=== PATIENT | male | born 1930 | race Caucasian/White ===

== ENCOUNTER 2016-10-22 14:00 | Inpatient (IN) | payer MEDICARE ==
[~2016-10-22] VITALS: Ht 175.3 cm; Wt 85.9 kg
[2016-10-22 14:00] VITALS: PULSE 74; RESP 18
[~2016-10-22 14:00] MED LIST: AMLO5TAB PO; DOXY-124 PO; FINA5TAB40 PO; TRIA1CAP35 PO
--- NOTE | 2016-10-22 14:00 | NUR ---
ADMISSION NOTE 86 YEAR OLD MALE WAS ADMITTED TO ROOM 189 TODAY AT 1400, DX WITH MAJOR NEUROCOGNITIVE DISORDER WITH BEHAVIORAL DISTURBANCES, PATIENT ARRIVED WALKING, FAMILY (SON, DAUGHTER IN LAW ) WERE PRESENT DURING ADMISSION. PATIENT CURRENTLY LIVES AT HOME ALONE, PAST AWAY 4 YEARS AGO, PATIENT IS ODALIS X 3, SPEECH IS CLEAR AND APPROPRIATE, PATIENT IS DRESSED APPROPRIATE FOR SEASON, HE WAS IN A HAPPY MOOD DURING ADMISSION, STATEMENT OF ADMISSION IS "I DON'T KNOW THEY SAID THEY WERE GOING TO CHECK MY BLOOD PRESSURE" PATIENT WAS COOPERATIVE WITH ASSESSMENT, HE HAS A LITTLE SCAB ON HIS RIGHT LE, HE ALSO HAS A SCAR ON HIS ABDOMEN RIGHT LOWER QUADRANT, PATIENT VALUABLES ARE ADDED TO HIS INVENTORY AND LOCK IN THE NURSES HOT BOX SPOTTER, PATIENT AND FAMILY WERE ORIENTED TO UNIT.
--- OUTSIDE RECORDS SUMMARY | 2016-10-22 15:19 | XMS REPORT | Referral Summary ---
Author Author [facility], Family Medicine Organization [facility] Address Unknown Phone Unavailable Care Team Providers Care District Operations Manager Name Role Phone Ibeth Velasco Primary Care Physician [phone] Encounter VC Date(s): 07/26/16 - 07/26/16 [facility] [address] [place] [address] Discharge Diagnosis: Driving safety issue Discharge Diagnosis: Cognitive Safety Issue Discharge Diagnosis: Poor Balance Discharge Diagnosis: Confusion Discharge Disposition: 01-Home or Self Care Attending Physician: Mejia Velasco MD Admitting Physician: Mejia Velasco MD Vital Signs Most recent to 1 oldest [Reference Range]: Peripheral Pulse 74 bpm Rate [60-100 bpm] (07/26/16 1:36 PM) Blood Pressure 188/90 mmHg [90-140/60-90 mmHg] *HI* (07/26/16 1:36 PM) Problem List Condition Effective Dates Status Health Status Informant Benign essential Active hypertension (disorder)(Confirmed ) Hernia, ventral Resolved incisional(Confirmed ) Hypertension(Confirm Resolved ed) Incisional hernia - 2012 Active ventral(Confirmed) Prostatic Resolved hypertrophy, benign(Confirmed) Prostatism(Confirmed Active ) Ruptured 1949 - 1949 Resolved liver(Confirmed) Allergies, Adverse Reactions, Alerts No Known Medication Allergies Medications amLODIPine 10 mg oral tablet See Instructions, TAKE ONE TABLET BY MOUTH DAILY, # 30 tabs, 5 Refill(s), eRx: [facility], TAKE ONE TABLET BY MOUTH DAILY Start Date: 11/25/15 Status: Ordered finasteride 5 mg oral tablet See Instructions, TAKE ONE TABLET BY MOUTH DAILY, # 90 tabs, 1 Refill(s), eRx: [facility], TAKE ONE TABLET BY MOUTH DAILY Start Date: 01/19/16 Status: Ordered Ocuvite 1 tabs, Oral, Daily, 0 Refill(s) Start Date: 11/21/15 Status: Ordered triamterene-hydrochlorothiazide 37.5 mg-25 mg oral capsule See Instructions, TAKE ONE CAPSULE BY MOUTH DAILY, # 30 caps, 5 Refill(s), eRx: [facility], TAKE ONE CAPSULE BY MOUTH DAILY Start Date: 11/25/15 Status: Ordered Results Hematology Most recent to 1 oldest [Reference Range]: WBC [4.8-10.8 7.6 10*3/uL 10*3/uL] (07/26/16 3:25 PM) RBC [4.60-6.20] 5.14 (07/26/16 3:25 PM) Hgb [14.0-18.0 15.1 gm/dL gm/dL] (07/26/16 3:25 PM) Hct [42.0-52.0 %] 48.3 % (07/26/16 3:25 PM) MCV [82.0-99.0 fL] 94.0 fL (07/26/16 3:25 PM) MCH [27.0-32.0 pg] 29.4 pg (07/26/16 3:25 PM) MCHC [32.0-36.0 31.3 gm/dL gm/dL] *LOW* (07/26/16 3:25 PM) RDW [11.5-14.5 %] 14.9 % *HI* (07/26/16 3:25 PM) Platelet [150-400 186 10*3/uL 10*3/uL] (07/26/16 3:25 PM) MPV [8.8-14.8 fL] 13.0 fL (07/26/16 3:25 PM) Immature 0.3 % Granulocytes (07/26/16 3:25 PM) [0.0-1.0 %] Neutrophils [51-75 67 % %] (07/26/16 3:25 PM) Lymphocytes [20-46 23 % %] (07/26/16 3:25 PM) Monocytes [4-11 %] 8 % (07/26/16 3:25 PM) Eosinophils [0-4 %] 1 % (07/26/16 3:25 PM) Basophils [0-2 %] 0 % (07/26/16 3:25 PM) Neutro Absolute 5.08 [1.90-7.00] (07/26/16 3:25 PM) Lymph Absolute 1.73 [0.80-3.30] (07/26/16 3:25 PM) Erath Absolute 0.63 [0.30-1.00] (07/26/16 3:25 PM) Eos Absolute 0.10 [0.00-0.50] (07/26/16 3:25 PM) Baso Absolute 0.03 [0.00-0.20] (07/26/16 3:25 PM) Sed Rate [0-15] 7 (07/26/16 3:25 PM) Chemistry Most recent to 1 oldest [Reference Range]: Sodium Lvl [135-144 143 mEq/L mEq/L] (07/26/16 3:25 PM) Potassium Lvl 4.3 mEq/L [3.5-5.2 mEq/L] (07/26/16 3:25 PM) Chloride [99-111 108 mEq/L mEq/L] (07/26/16 3:25 PM) CO2 [23-31 mEq/L] 23 mEq/L (07/26/16 3:25 PM) AGAP [3-20] 12 (07/26/16 3:25 PM) BUN [8-26 mg/dL] 27 mg/dL *HI* (07/26/16 3:25 PM) Glucose Lvl [70-99 113 mg/dL mg/dL] *HI* (07/26/16 3:25 PM) Creatinine Lvl 1.37 mg/dL [0.72-1.25 mg/dL] *HI* (07/26/16 3:25 PM) eGFR [>60 mL/min] 50 mL/min 1 *ABN* (07/26/16 3:25 PM) Calcium Lvl 9.9 mg/dL [8.9-10.5 mg/dL] (07/26/16 3:25 PM) Albumin Lvl [3.4-4.8 3.9 gm/dL gm/dL] (07/26/16 3:25 PM) Total Protein 7.0 gm/dL [6.0-7.6 gm/dL] (07/26/16 3:25 PM) Globulin [1.8-4.0 3.1 gm/dL gm/dL] (07/26/16 3:25 PM) ALT [0-55 U/L] 10 U/L (07/26/16 3:25 PM) AST [5-34 U/L] 15 U/L (07/26/16 3:25 PM) Alk Phos [40-150 69 U/L U/L] (07/26/16 3:25 PM) Bili Total [0.2-1.2 0.6 mg/dL mg/dL] (07/26/16 3:25 PM) TSH with Reflex Free 1.62 T4 [0.35-4.94] (07/26/16 3:25 PM) 1Result Comment: Multiply eGFR results by 1.21 for race. Urinalysis Most recent to 1 oldest [Reference Range]: UA Color DkYellow (07/26/16 3:39 PM) UA Appear Turbid *ABN* (07/26/16 3:39 PM) UA pH [5.0-8.0] 5.5 (07/26/16 3:39 PM) UA Leuk Est Negative [Negative] (07/26/16 3:39 PM) UA Nitrite Negative [Negative] (07/26/16 3:39 PM) UA Protein Pos 2+ [Negative] *ABN* (07/26/16 3:39 PM) UA Glucose Negative [Negative] (07/26/16 3:39 PM) UA Ketones Negative [Negative] (07/26/16 3:39 PM) UA Urobilinogen 1.0 mg/dL [<1.0 mg/dL] (07/26/16 3:39 PM) UA Bili [Negative] Negative (07/26/16 3:39 PM) UA Blood [Negative] Negative (07/26/16 3:39 PM) UA Spec Grav 1.028 [1.003-1.030] (07/26/16 3:39 PM) Type Clean Catch (07/26/16 3:39 PM) UA WBC [0-4] 0-2 (07/26/16 3:39 PM) UA RBC [0-4] 0-4 (07/26/16 3:39 PM) Epithelial Cells 0-2 (07/26/16 3:39 PM) UA Hyal Cast [0-3] 1-3 (07/26/16 3:39 PM) Immunizations Given and Recorded Vaccine Date Status Refusal Reason tetanus/diphth/pertuss (Tdap) adult/adol 07/23/14 Given pneumococcal 13-valent conjugate vaccine 04/11/15 Given pneumococcal 23-polyvalent vaccine 07/10/10 Recorded tetanus-diphth toxoids (Td) adult/adol 06/27/04 Recorded Procedures Procedure Date Related Diagnosis Body Site Hernia repair, laparoscopic with mesh 07/27/12 S/P tonsillectomy 2011 Cataract extraction, bilateral TURP - Transurethral resection of prostate1 1Dr. Cho Social History Social History Type Response Smoking Status Never smoker Assessment and Plan Extracted from: Title: Acute OV Author: Mejia Velasco MD Date: 07/26/16 Impression and Plan Diagnosis Cognitive Safety Issue ([id number] Z65.9, Discharge, Medical). Confusion ([id number] R41.0, Discharge, Medical). Driving safety issue ([id number] Z91.89, Discharge, Medical). Poor Balance ([id number]-RK R26.89, Discharge, Medical). Orders Orders (Selected) Outpatient Orders Future (On Hold) CBC w/ Differential: CMP: Sedimentation Rate: TSH with Reflex Free T4: Urinalysis with Culture if Indicated: .
--- OUTSIDE RECORDS SUMMARY | 2016-10-22 15:19 | XMS REPORT | Referral Summary ---
Author Author [facility], Family Medicine Organization [facility] Address Unknown Phone Unavailable Care Team Providers Care Health Nurse Name Role Phone Ibeth Velasco Primary Care Physician [phone] Encounter VC Date(s): 04/11/15 - 04/11/15 [facility] [address] [place] [address] Discharge Diagnosis: Prostatism Discharge Diagnosis: Benign essential hypertension Discharge Disposition: 01-Home or Self Care Attending Physician: Mejia Velasco MD Admitting Physician: Mejia Velasco MD Vital Signs Most recent to 1 oldest [Reference Range]: Temperature Tympanic 36.2 degC [36.6-38.1 degC] *LOW* (04/11/15 8:44 AM) Peripheral Pulse 74 bpm Rate [60-100 bpm] (04/11/15 8:44 AM) Blood Pressure 150/85 mmHg [90-140/60-90 mmHg] *HI* (04/11/15 8:44 AM) Problem List Condition Effective Dates Status Health Status Informant Benign essential Active hypertension (disorder)(Confirmed ) Hernia, ventral Resolved incisional(Confirmed ) Hypertension(Confirm Resolved ed) Incisional hernia - 2012 Active ventral(Confirmed) Prostatic Resolved hypertrophy, benign(Confirmed) Prostatism(Confirmed Active ) Ruptured 1949 - 1949 Resolved liver(Confirmed) Allergies, Adverse Reactions, Alerts No Known Medication Allergies Medications amLODIPine 10 mg oral tablet 10 mg 1 tabs, Oral, Daily, # 30 tabs, 2 Refill(s), Pharmacy: [facility], 1 tabs Oral Daily Start Date: 04/11/15 Status: Ordered ocular lubricant Eye-Both, 0 Refill(s) Start Date: 07/23/14 Status: Ordered Proscar 5 mg oral tablet See Instructions, TAKE ONE TABLET BY MOUTH DAILY, # 90 tabs, eRx: [facility], TAKE ONE TABLET BY MOUTH DAILY Start Date: 01/16/15 Status: Ordered triamterene-hydrochlorothiazide 37.5 mg-25 mg oral capsule 1 caps, Oral, Daily, PLEASE CALL TO MAKE APPT FOR MEDICATION CHECK WITH DR VELASCO, # 30 caps, 1 Refill(s), Pharmacy: [facility] Start Date: 03/04/15 Status: Ordered Results Chemistry Most recent to 1 oldest [Reference Range]: Sodium Lvl [135-144 139 mEq/L mEq/L] (04/11/15 9:30 AM) Potassium Lvl 4.3 mEq/L [3.5-5.2 mEq/L] (04/11/15 9:30 AM) Chloride [99-111 101 mEq/L mEq/L] (04/11/15 9:30 AM) CO2 [23-31 mEq/L] 29 mEq/L (04/11/15 9:30 AM) AGAP [3-20] 9 (04/11/15 9:30 AM) BUN [8-26 mg/dL] 22 mg/dL (04/11/15 9:30 AM) Glucose Lvl [70-99 133 mg/dL mg/dL] *HI* (04/11/15 9:30 AM) Creatinine Lvl 1.47 mg/dL [0.72-1.25 mg/dL] *HI* (04/11/15 9:30 AM) eGFR [>60 mL/min] 46 mL/min 1 *ABN* (04/11/15 9:30 AM) Calcium Lvl 10.8 mg/dL [8.9-10.5 mg/dL] *HI* (04/11/15 9:30 AM) 1Result Comment: Multiply eGFR results by 1.21 for race. Immunizations Vaccine Date Refusal Reason tetanus/diphth/pertuss (Tdap) adult/adol 07/23/14 pneumococcal 13-valent conjugate vaccine 04/11/15 pneumococcal 23-polyvalent vaccine 07/10/10 tetanus-diphth toxoids (Td) adult/adol 06/27/04 Procedures Procedure Date Related Diagnosis Body Site Hernia repair, laparoscopic with mesh 07/27/12 S/P tonsillectomy 2012 Cataract extraction, bilateral TURP - Transurethral resection of prostate1 1Dr. Cho Social History Social History Type Response Smoking Status Never smoker Assessment and Plan Extracted from: Title: Office Visit Note Author: Mejia Velasco MD Date: 04/11/15 Assessment/Plan Benign essential hypertension Ordered: Basic Metabolic Panel Prostatism Orders: amLODIPine, 10 mg 1 tabs, Oral, Daily, # 30 tabs, 2 Refill(s), Pharmacy: [facility], 1 tabs Oral Daily Blood pressure seems to be just a bit above goal. Will increase amlodipine to 10 mg daily. Monitor blood pressures with goal less than 140/90. Follow-up with me in one month. Check BMP , we will update Prevnar vaccine.
--- OUTSIDE RECORDS SUMMARY | 2016-10-22 15:19 | XMS REPORT | Referral Summary ---
Author Author [facility], Family Medicine Organization [facility] Address Unknown Phone Unavailable Care Team Providers Care Professional System Administrator Name Role Phone Ibeth Velasco Primary Care Physician [phone] Encounter VC Date(s): 11/21/15 - 11/21/15 [facility] [address] [place] [address] Discharge Diagnosis: Ganglion cyst Discharge Diagnosis: Ganglion cyst Discharge Disposition: 01-Home or Self Care Attending Physician: Mejia Velasco MD Admitting Physician: Mejia Velasco MD Vital Signs Most recent to 1 oldest [Reference Range]: Temperature Tympanic 36.8 degC [36.6-38.1 degC] (11/21/15 1:58 PM) Peripheral Pulse 75 bpm Rate [60-100 bpm] (11/21/15 1:58 PM) Blood Pressure 124/84 mmHg [90-140/60-90 mmHg] (11/21/15 1:58 PM) SpO2 94 % (11/21/15 1:58 PM) Problem List Condition Effective Dates Status [...] TABLET BY MOUTH DAILY, # 30 tabs, 1 Refill(s), eRx: [facility], TAKE ONE TABLET BY MOUTH DAILY Start Date: 08/22/15 Status: Ordered ocular lubricant Eye-Both, 0 Refill(s) Start Date: 07/23/14 Status: Ordered Ocuvite 1 tabs, Oral, Daily, 0 Refill(s) Start Date: 11/21/15 Status: Ordered Proscar 5 mg oral tablet See Instructions, TAKE ONE TABLET BY MOUTH DAILY, # 90 tabs, 1 Refill(s), eRx: [facility], TAKE ONE TABLET BY MOUTH DAILY Start Date: 04/15/15 Status: Ordered triamterene-hydrochlorothiazide 37.5 mg-25 mg oral capsule See Instructions, TAKE ONE CAPSULE BY MOUTH DAILY, # 30 caps, 1 Refill(s), eRx: [facility], TAKE ONE CAPSULE BY MOUTH DAILY Start Date: 08/22/15 Status: Ordered Results No data available for this section Immunizations Vaccine Date Refusal Reason tetanus/diphth/pertuss (Tdap) [...] Acute OV Author: Mejia Velasco MD Date: 11/21/15 Impression and Plan Diagnosis Ganglion cyst ([id number] M67.40, Discharge, Medical). Plan: Discussed etiology and pathology of a Ganglion cyst. Continue to monitor. If symptoms worsen, will follow up for referral to hand surgeon..
--- OUTSIDE RECORDS SUMMARY | 2016-10-22 15:19 | XMS REPORT | Referral Summary ---
Author Author [facility] Organization [facility] Address Unknown Phone Unavailable Care Team Providers Care Operating Room Nurse Name Role Phone Ibeth Velasco Primary Care Physician [phone] Encounter VC Date(s): 12/10/14 - 12/10/14 [facility] [address] [place] [address]- Discharge Disposition: 01-Home or Self Care Attending Physician: Mejia Velasco MD Admitting Physician: Mejia Velasco MD Vital Signs No data available for this section Problem List Condition Effective Dates Status Health [...] CAPSULE BY MOUTH DAILY, # 30 caps, eRx: [facility], TAKE ONE CAPSULE BY MOUTH DAILY Start Date: 05/30/15 Status: Ordered Results No data available for [...] Smoking Status Never smoker Assessment and Plan No data available for this section
--- OUTSIDE RECORDS SUMMARY | 2016-10-22 15:19 | XMS REPORT | Referral Summary ---
Author Author [facility], Family Medicine Organization [facility] Address Unknown Phone Unavailable Care Team Providers Care Assistant Professor Of Mathematics Name Role Phone Ibeth Velasco Primary Care Physician [phone] Encounter VC Date(s): 01/20/15 - 01/20/15 [facility], [address] [place] [address] Discharge Diagnosis: Complex laceration of right eyebrow Discharge Disposition: 01-Home or Self Care Attending Physician: William Corral DO Admitting Physician: William Corral DO Referring Physician: Mejia Velasco MD Vital Signs Most recent to 1 oldest [Reference Range]: Temperature Tympanic 37 degC [36.6-38.1 degC] (01/20/15 4:04 PM) Peripheral Pulse 60 bpm Rate [60-100 bpm] (01/20/15 4:04 PM) Blood Pressure 122/74 mmHg [90-140/60-90 mmHg] (01/20/15 4:04 PM) Problem List Condition Effective Dates Status [...] # 30 tabs, 2 Refill(s), Pharmacy: [facility], 1 tabs Oral Daily Start Date: 04/11/15 [...] ONE CAPSULE BY MOUTH DAILY Start Date: 07/14/15 Status: Ordered Results No data available for this section Immunizations Vaccine Date Refusal Reason tetanus/diphth/pertuss (Tdap) adult/adol 07/23/14 pneumococcal 13-valent conjugate vaccine 04/11/15 pneumococcal 23-polyvalent vaccine 07/10/10 tetanus-diphth toxoids (Td) adult/adol 06/27/04 Procedures Procedure Date Related Diagnosis Body Site Repair, complex, forehead, cheeks, chin, 01/20/15 mouth, neck, axillae, genitalia, hands and/or feet; 1.1 cm to 2.5 cm.. Hernia repair, laparoscopic with mesh 07/27/12 S/P tonsillectomy 2011 Cataract extraction, bilateral TURP - Transurethral resection of prostate1 1Dr. Cho Social History Social History Type Response Smoking Status Never smoker Assessment and Plan Extracted from: Title: Office Visit Note Author: William Corral DO Date: 01/20/15 Assessment/Plan Complex laceration of right eyebrow Given the extent and depth of the laceration repair was recommended to which the patient agreed. With the patient laid in the supine position the area was cleansed with saline. Using one percent lidocaine with epinephrine, a total of 3 mL was infiltrated along the margins of the laceration. Once local anesthesia was achieved, the wound was explored and no foreign bodies appreciated. The wound was rinsed with a total of 40 mL of normal saline using a 10 mL syringe and 18- gauge needle. Using 4-0 Vicryl the deep margins of the laceration were approximated with 4 interrupted sutures. The superficial margins were approximated using 5-0 Prolene with a running suture. The wound was cleansed and wound care instructions provided. Follow-up in one week for suture removal. Ordered: Office Visit Level 3 Est 65830 repair complex f/c/c/m/n/ax/g/h/f 1.1 cm-2.5 cm [id number]
--- OUTSIDE RECORDS SUMMARY | 2016-10-22 15:19 | XMS REPORT | Referral Summary ---
Author Author [facility], Family [facility] Organization [facility] Address Unknown Phone Unavailable Care Team Providers Care Nuclear Radiation Engineer Name Role Phone Ibeth Velasco Primary Care Physician [phone] Encounter VC Date(s): 08/06/15 - 08/06/15 [facility] [address] [place] [address] Discharge Diagnosis: Benign essential hypertension Discharge Disposition: 01-Home or Self Care Attending Physician: William Corral DO Admitting Physician: William Corral DO Referring Physician: Mejia Velasco MD Vital Signs Most recent to 1 oldest [Reference Range]: Peripheral Pulse 72 bpm Rate [60-100 bpm] (08/06/15 10:22 AM) Blood Pressure 142/80 mmHg [90-140/60-90 mmHg] *HI* (08/06/15 10:22 AM) SpO2 97 % (08/06/15 10:22 AM) Problem List Condition Effective Dates Status [...] smoker Assessment and Plan Extracted from: Title: HTN Author: William Corral DO Date: 08/06/15 Assessment/Plan Benign essential hypertension, Essential (primary) hypertension 1. His blood pressure is well controlled today. 2. Continue with current regimen. 3. Recommended low-salt diet. 4. Avoid NSAIDs. 5. Primary care provider for management. Ordered: Office Visit Level 3 Est [id number]
--- OUTSIDE RECORDS SUMMARY | 2016-10-22 15:19 | XMS REPORT | Referral Summary ---
Author Organization Unknown Address Unknown Phone Unavailable Care Team Providers Care Plant Attendant Name Role Phone Ibeth Velasco Primary Care Physician [phone] Encounter VC FREDDY [id number] Date(s): 07/23/14 - 07/23/14 [facility], Matthew, Family [address] [place] [address] Discharge Diagnosis: Puncture wound Discharge Diagnosis: Elevated BP Discharge Diagnosis: Need for diphtheria, tetanus, acellular pertussis, haemophilus influenzae, and hepatitis B virus vaccine Discharge Diagnosis: Need for tetanus booster Discharge Disposition: Home or Self Care Attending Physician: Mejia Velasco MD Admitting Physician: Mejia Velasco MD Vital Signs Most recent to 1 oldest [Reference Range]: Temperature Tympanic 35.8 degC [36.6-38.1 degC] *LOW* (07/23/14 8:39 AM) Peripheral Pulse 80 bpm Rate [60-100 bpm] (07/23/14 8:39 AM) Blood Pressure 155/84 mmHg [90-140/60-90 mmHg] *HI* (07/23/14 8:39 AM) Problem List Condition Effective Dates Status Health Status Informant Benign essential Active hypertension (disorder)(Confirmed ) Hernia, ventral Resolved incisional(Confirmed ) Hypertension(Confirm Resolved ed) Incisional hernia - 2012 Active ventral(Confirmed) Prostatic Resolved hypertrophy, benign(Confirmed) Prostatism(Confirmed Active ) Ruptured 1949 - 1949 Resolved liver(Confirmed) Allergies, Adverse Reactions, Alerts No Known Medication Allergies Medications amLODIPine 5 mg oral tablet tabs, Oral, Daily, 0 Refill(s) Start Date: 07/23/14 Status: Ordered finasteride 5 mg oral tablet See Instructions, TAKE ONE TABLET BY MOUTH DAILY, # 90 tabs, 2 Refill(s), eRx: [facility], TAKE ONE TABLET BY MOUTH DAILY Special Instructions: TAKE ONE TABLET BY MOUTH DAILY Start Date: 02/07/14 Status: Ordered ocular lubricant Eye-Both, 0 Refill(s) Start Date: 07/23/14 Status: Ordered triamterene-hydrochlorothiazide 37.5 mg-25 mg oral capsule See Instructions, TAKE ONE CAPSULE BY MOUTH DAILY, # 30 caps, 5 Refill(s), eRx: [facility], TAKE ONE CAPSULE BY MOUTH DAILY Special Instructions: TAKE ONE CAPSULE BY MOUTH DAILY Start Date: 06/25/14 Status: Ordered Results No data available for this section Immunizations Vaccine Date Refusal Reason tetanus/diphth/pertuss (Tdap) adult/adol 07/23/14 pneumococcal 23-polyvalent vaccine 07/10/10 tetanus-diphth toxoids (Td) adult/adol 06/27/04 Procedures Procedure Date Related Diagnosis Body Site Hernia repair, laparoscopic with mesh 07/27/12 S/P tonsillectomy 2011 Cataract extraction, bilateral TURP - Transurethral resection of prostate1 1Dr. Cho Social History Social History Type Response Smoking Status Never smoker Assessment and Plan Extracted from: Title: Office Visit Note-cats Author: Mejia Velasco MD Date: 07/23/14 scratch injury Assessment/Plan Elevated BP Monitor blood pressures. Follow-up when necessary. Need for tetanus booster Update Tdap today. Puncture wound No significant problem at this point. Follow-up if worsening symptoms/signs of infection.
--- OUTSIDE RECORDS SUMMARY | 2016-10-22 15:19 | XMS REPORT | Continuity of Care Document ---
Author Author [facility] Organization [facility] Address Unknown Phone Unavailable Allergies Active Description Code Type Severity Reaction Onset Reported/Identified Relationship to Patient Clinical Status Yes No Known Medication Allergies NKMA N/A N/A 06/07/2014 Medications Problems Procedures Results Test Result Range CBC With Platelet and Differential - 07/26/16 15:25 Absolute Basophils 0.03 10*3/uL 0.00- 0.20 Absolute Eosinophils 0.10 10*3/uL 0.00- 0.50 Absolute Lymphocytes 1.73 10*3/uL 0.80- 3.30 Absolute Monocytes 0.63 10*3/uL 0.30- 1.00 Absolute Neutrophils 5.08 10*3/uL 1.90- 7.00 Basophils 0 % 0-2 Eosinophils 1 % 0-4 HCT 48.3 % 42.0-52.0 HGB 15.1 g/dL 14.0-18.0 Immature Granulocytes 0.3 % 0.0-1.0 Lymphocytes 23 % 20-46 MCH 29.4 pg 27.0-32.0 MCHC 31.3 g/dL 32.0-36.0 MCV 94.0 fL 82.0-99.0 Monocytes 8 % 4-11 MPV 13.0 fL 8.8-14.8 Neutrophils 67 % 51-75 Platelet Count 186 K/uL 150-400 RBC 5.14 10*6/uL 4.60-6.20 RDW 14.9 % 11.5-14.5 WBC 7.6 K/uL 4.8-10.8 TSH with Reflex Free T4 - 07/26/16 15:25 TSH with Reflex Free T4 1.62 uIU/mL 0.35- 4.94 Comprehensive Metabolic Panel (CMP) - 07/26/16 15:25 Albumin 3.9 g/dL 3.4-4.8 Alkaline Phosphatase 69 U/L 40-150 ALT (SGPT) 10 U/L 0-55 AST (SGOT) 15 U/L 5-34 Bilirubin Total 0.6 mg/dL 0.2-1.2 BUN 27 mg/dL 8-26 CO2 23 mEq/L 23-31 Creatinine 1.37 mg/dL 0.72-1.25 Globulin 3.1 g/dL 1.8-4.0 Glucose 113 mg/dL 70-99 Protein 7.0 g/dL 6.0-7.6 eGFR - 07/26/16 15:25 eGFR 50 mL/min >60 Sedimentation Rate - 07/26/16 15:25 Sedimentation Rate 7 mm/h 0-15 Urinalysis with reflex microscopic - 07/26/16 15:39 Appearance Turbid NA Blood Negative NA Negative Color DkYellow NA Glucose, Urine Negative Negative Ketones Negative Negative Leukocyte Esterase Negative NA Negative Nitrites Negative NA Negative pH 5.5 NA 5.0-8.0 Protein Pos 2+ Negative Specific [place] 1.028 NA 1.003-1.030 UA Collection type Clean Catch NA Urobilinogen 1.0 mg/dL <1.0 Urine Microscopic - 07/26/16 15:39 Epithelial Cells 0 /HPF Hyaline Casts 1 /LPF 0-3 RBC, Urine 0 /HPF 0-4 WBC, Urine 0 /HPF 0-4 Encounters ACCT No. Visit Date/Time Discharge Status Pt. Type Provider Facility Loc./Unit Complaint [id number] 07/26/2016 13:14:00 2016 23:59:00 DIS Outpatient Mejia Velasco V [facility] MOVING TO [facility] ORDERS [id number] 11/21/2015 13:34:00 2015 23:59:00 DIS Outpatient Mejia Velasco V [facility] lump on right wrist [id number] 08/06/2015 10:17:00 2015 23:59:00 DIS Outpatient William Corral [facility] [place] ELEVATED BP [id number] 04/11/2015 08:34:00 2014 23:59:00 DIS Outpatient Mejia Velasco V [facility] [place] recheck [id number] 01/29/2015 09:28:00 2014 23:59:00 DIS Outpatient Mejia Velasco V [facility] SUTURE REMOVAL [id number] 01/20/2015 15:56:00 2014 23:59:00 DIS Outpatient William Corral [facility] FELL AT HOME HIT HEAD RT SIDE OF MORMON [id number] 07/23/2014 08:31:00 2014 23:59:00 DIS Outpatient Mejia Velasco V [facility] CATCH SCRATCH FROM A COUPLE DAYS AGO [id number] 06/07/2014 10:07:00 2013 23:59:00 DIS Outpatient William Corral [facility] NOSE BLEEDS/WAS SEEN BY EMS TODAY [id number] 12/10/2014 12:06:00 Document Registration
--- OUTSIDE RECORDS SUMMARY | 2016-10-22 15:20 | XMS REPORT | Referral Summary ---
Author Author [facility] Organization [facility] Address Unknown Phone Unavailable Care Team Providers Care Thread Milling Machine Set Up Operator Name Role Phone Ibeth Velasco Primary Care Physician [phone] Encounter VC Date(s): 01/29/15 - 01/29/15 [facility] [address] [place] [id number] Discharge Diagnosis: Encounter for removal of sutures Discharge Disposition: 01-Home or Self Care Attending Physician: Mejia Velasco MD Admitting Physician: Mejia Velasco MD Vital Signs Most recent to 1 oldest [Reference Range]: Temperature Tympanic 36 degC [36.6-38.1 degC] *LOW* (01/29/15 9:30 AM) Peripheral Pulse 72 bpm Rate [60-100 bpm] (01/29/15 9:30 AM) Blood Pressure 138/89 mmHg [90-140/60-90 mmHg] (01/29/15 9:30 AM) Problem List Condition Effective Dates Status [...] DAILY, # 90 tabs, 1 Refill(s), eRx: [facility], TAKE ONE TABLET BY MOUTH DAILY [...] Visit Note Author: Mejia Velasco MD Date: 01/29/15 Assessment/Plan Encounter for removal of sutures Follow-up when necessary.
--- OUTSIDE RECORDS SUMMARY | 2016-10-22 15:20 | XMS REPORT | Referral Summary ---
Author Author [facility] Organization [facility] Address Unknown Phone Unavailable Care Team Providers Care Merchant Tailor Name Role Phone Ibeth Velasco Primary Care Physician [phone] Encounter VC Date(s): 04/11/15 - 04/11/15 [facility] [address] [place] [address] Discharge Diagnosis: Prostatism Discharge Diagnosis: Benign essential [...] DAILY Start Date: 08/22/15 Status: Ordered Results Chemistry Most recent to [...] Daily, # 30 tabs, 2 Refill(s), Pharmacy: [facility], 1 tabs Oral Daily Blood pressure seems to be just a bit above goal. Will increase amlodipine to 10 mg daily. Monitor blood pressures with goal less than 140/90. Follow-up with me in one month. Check BMP , we will update Prevnar vaccine.
[2016-10-22 15:23] VITALS: BP 146/93; PULSE 74; RESP 18; TEMP 97.4; O2SAT 93
[2016-10-22] MEDS ORDERED: VIT1CAPS21 PO (15:37)
[2016-10-22] MEDS ORDERED: HALOPERIDOL 5 MG/ML INJECTION IM PRN (16:00)
[2016-10-22] MEDS ORDERED: LORAZEPAM 2 MG/ML INJECTION IM PRN (16:00)
[2016-10-22] MEDS ORDERED: HALOPERIDOL 0.5 MG TABLET PO PRN (16:00)
[2016-10-22] MEDS ORDERED: PRN ORDERS MC (16:00)
[2016-10-22] MEDS ORDERED: LORAZEPAM 0.5 MG TABLET PO PRN (16:00)
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
[2016-10-22 17:07] VITALS: BP 173/99; PULSE 80; RESP 18; TEMP 98.2; O2SAT 95
[2016-10-22 17:16] LABS: BASOPHILS % (AUTO) 0.1 % (0-2); EOSINOPHILS # (AUTO) 0.1 T/MM3 (0-0.5); EOSINOPHILS % (AUTO) 0.6 % (0-4); HCT - HEMATOCRIT 49.7 % (41-53); HGB - HEMOGLOBIN 16.2 GM/DL (13.5-17.5); IMMATURE GRANULOCYTE # (AUTO) 0.02 T/MM3 (0.00-0.03); IMMATURE GRANULOCYTE % (AUTO) 0.2 % (0.0-0.5); LYMPHOCYTES # (AUTO) 1.9 T/MM3 (1-4.8); LYMPHOCYTES % (AUTO) 19.5 % (23-45); MEAN CORPUSCULAR HGB 30.1 UUG (26-34); MEAN CORPUSCULAR HGB CONC(MCHC 32.6 GM/DL (31-37); MEAN CORPUSCULAR VOLUME 92.4 UM3 (80-100); MEAN PLATELET VOLUME 12.5 UM3 (9.4-12.4); MONOCYTES # (AUTO) 0.5 T/MM3 (0-0.8); MONOCYTES % (AUTO) 4.9 % (0-9.0); NEUTROPHILS #(AUTO)-ABSOLUTE 7.1 T/MM3 (1.8-7.7); NEUTROPHILS % (AUTO) 74.7 % (33-66); RED BLOOD COUNT 5.38 M/MM3 (4.50-5.90); WBC - WHITE BLOOD COUNT 9.6 T/MM3 (4.5-11.0)
[2016-10-22 17:23] LABS: HEMOGLOBIN A1C 5.8 % (6.1-7.9)
[2016-10-22 17:24] LABS: ALBUMIN 4.2 G/DL (3.5-5.0); ALBUMIN/GLOBULIN RATIO 1.2 RATIO (1.1-2.2); ALKALINE PHOSPHATASE 76 U/L (38-126); ALT (SGPT) 39 U/L (21-72); ANION GAP 16 MEQ/L (5-15); AST (SGOT) 25 U/L (17-59); BUN/CREATININE RATIO 23 RATIO (6-26); CALCIUM 10.4 MG/DL (8.4-10.2); CHLORIDE 103 MEQ/L (98-107); CO2 - CARBON DIOXIDE 26 MEQ/L (22-30); CREATININE 1.2 MG/DL (0.8-1.5); GLOMERULAR FILTRATION RATE 58; GLUCOSE 113 MG/DL (75-110); POTASSIUM 3.9 MEQ/L (3.6-5); SODIUM 145 MEQ/L (134-144); TOTAL PROTEIN 7.8 G/DL (6.3-8.2)
[2016-10-22 17:54] LABS: THYROID STIM HORMONE-TSH 1.37 MIU/L (0.47-4.68)
[2016-10-22 18:27] VITALS: Ht 175.3 cm; Wt 85.9 kg
--- NOTE | 2016-10-22 19:13 | NUR ---
SHIFT SUMMARY Patient is AO x 3. speech is clear and appropriate, patient did not had any medications since admission, patient has a steady gait, ambulates independently, is able to feed self. Patient was upset around 2 hours after admission, he was med and felt like people lied to him because he was not told he was going to stay here for a couple of days, patient was raising his voice and saying " I want to go home, I'm not staying here 2 days, I don't agree with your philosophy, I'm going home, they told me they were just going to check my blood pressure. " Patient was explained our process and he said he does not agree and is not going to stay. Patient was able to redirect. Patient was more calm and relax after dinner, he is able to make needs known. Patient denies needs or concerns at the moment.
[2016-10-22 19:34] VITALS: PULSE 80; RESP 18; O2SAT 95
--- NOTE | 2016-10-22 19:53 | NUR ---
smoking status patient is a non smoker.
--- NOTE | 2016-10-22 19:53 | NUR ---
alcohol audit patient score 0 on alcohol audit
[2016-10-22 20:37] VITALS: BP 170/98; PULSE 77; RESP 20; TEMP 98.3
--- NOTE | 2016-10-22 23:07 | NUR ---
UPREGULATING PT HAD CLARIFIER OPERATOR HELPER LIGHT, I WENT INTO SEE WHAT PT WANTED. SOON I STEPPED IN, PT YELLED, "PUT THIS LIGHT OUT AND GET THE HELL OUT!" NATHAN MINA FOLLOWED BEHIND ME AND SHE ATTEMPTED TO CALM PT AND WANTED TO GET PT'S BELT AND SHOES. PT GOT OUT OF BED ADN STARTED YELLING "GET THE HELL OUT I SAID! I DON'T NEED ANYONE!". STAFF LEFT ROOM AND PT STARTED CRAWLING IN BED AND STARTING TO DOWN REGULATE. I WAS ABLE TO SEE PT LAYING IN BED WITH DOOR CRACKED, PT YELLED, "SHUT THE DOOR, ALL THE WAY!". I SHUT THE DOOR ALL THE WAY. BED ALARM NOT ON. WILL CONTINUE TO MONITOR.
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
--- NOTE | 2016-10-23 03:01 | NUR ---
Chart Check 24 hour chart check completed
[2016-10-23] MEDS ORDERED: HALOPERIDOL 1 MG/0.5 ML ORAL LIQUID PO PRN ×2 (04:00→22:00)
[2016-10-23] MEDS ORDERED: LORAZEPAM INTENSOL 1mg/0.5ml ORAL SOLUTION SL PRN (04:00)
--- NOTE | 2016-10-23 06:00 | NUR ---
Summary patient was awake in room yelling at staff when arrived on shift. Patient was yelling at staff "to get out". Patient refused physical assessment, even when reattempting once patient calmed. No signs of pain, discomfort, or SOA noted. Staff was able to calm patient without use of prns as i arrived on shift. Patient slept from 5040-6728. When patient woke up patient was agitated by bed alarm. Patient could be heard cursing at alarm as staff entered room to shut off alarm. Patient began yelling and cursing at staff. See behavior notes. Staff was able to start deescalating process with patient, before giving patient more space ass request once staff knew patient was safe. Patient continued to calm once staff had left room. Patient then slept from [id number], used restroom with no agitation observed. Patient then self directed back to bed and has been asleep since 0230. No prns given.
[2016-10-23 09:30] VITALS: BP 149/87; PULSE 88; RESP 20; TEMP 98.6; O2SAT 97
[2016-10-23] MEDS: --POM--AMLODIPINE 10 MG TABLET PO SCH (09:49)
[2016-10-23] MEDS: MULTIVIT PO SCH (09:49)
[2016-10-23] MEDS: FINASTERIDE 5 MG TABLET PO SCH (09:49)
[2016-10-23] MEDS: MINERALS PO SCH (09:49)
[2016-10-23] MEDS: TRIAMTERENE PO SCH (09:49)
[2016-10-23] MEDS: HCTZ PO SCH (09:49)
--- NOTE | 2016-10-23 14:27 | PNPDOC ---
Subjective Date DATE: 10/23/16 TIME: 14:21 Subjective Jolie is seen today in follow up. He is up in dining area. Does cooperate with exam- doesn't want to be here. Demanding to go home, but is not acting out with me. Nursing notes reflect that he has been agitated and threatening to staff during the night. Chart is reviewed. Objective Vital Signs Vital signs Vital Signs Date Time Temp Pulse Resp B/P Pulse Ox O2 Delivery O2 Flow Rate FiO2 10/23/16 09:30 98.6 88 20 149/87 97 Room Air Height (Feet): 5 Height (Inches): 9.00 Weight (Kilograms): 85.500 General General Appearance: Alert, No Acute Distress Comments Irritable, but did allow exam. Neck (Brief) Neck: FOUND: midline, NOT FOUND: JVD, nuchal rigidity, spasm Respiratory (Brief) Respiratory: FOUND: clear all cole, equal bilaterally, symmetrical, NOT FOUND : rales, wheezes Cardiovascular (Brief) Cardiac: FOUND: regular rate, regular rhythm, NOT FOUND: murmur, pedal edema Abdomen (Brief) Abdominal: FOUND: BS normo active x4, soft, NOT FOUND: distended, tender Extremities (Brief) Extremity : Side: Bilateral Extremity Finding: NOT FOUND: edema Integumentary (Brief) Integumentary: FOUND: dry, pink, warm Psychiatric (Brief) Psychiatric: FOUND: alert, attentive, NOT FOUND: oriented Laboratory Laboratory Laboratory Tests 10/22/16 16:46 Laboratory Tests 10/22/16 16:46 Sepsis Diagnostic Criteria Sepsis Confirmed/Suspected Infection: No Assessment & Plan Problems: (1) Major neurocognitive disorder (2) Prostatism Status: Chronic (3) HTN (hypertension) Status: Chronic Qualifiers: Hypertension type: essential hypertension Qualified Codes: I10 - Essential (primary) hypertension (4) Dehydration with hypernatremia Status: Acute Assessment 10/23/16- Patient continues to have aggressive behavior. Maintain safe environment- meds per attending. BP remains fairly elevated- add Atenolol. We may need to DC Maxzide if he remains clinically dry on labs Continue Norvasc, Proscar for BPH. Lab recheck pending in AM. Code Status Do Not Resuscitate Hospital Course Summary Disclaimer The hospital course summary below is not to be considered part of the above Progress Note. Hospital Course Summary 10/22/16 Agree with admission to [facility]. At the time of evaluation, labs had not been yet obtained. We'll await results of workup to make further recommendations. Patient does have a history of hypertension, continue Maxzide and Norvasc. He has trace edema to bilateral lower extremities. Also history of prostatism and takes Proscar. Provide safe and supportive environment. 10/23/16- Patient continues to have aggressive behavior. Maintain safe environment- meds per attending. BP remains fairly elevated- add Atenolol. We may need to DC Maxzide if he remains clinically dry on labs Continue Norvasc, Proscar for BPH. Lab recheck pending in AM. YOLY STEPHENS STAFF PHARMACIST Oct 23, 2016 14:26
[2016-10-23 16:00] VITALS: BP 142/88; PULSE 88; RESP 16; TEMP 98; O2SAT 95
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
[2016-10-23] MEDS: LORAZEPAM INTENSOL 1mg/0.5ml ORAL SOLUTION SL PRN (17:20)
--- NOTE | 2016-10-23 17:20 | NUR ---
Status/Behavior Status Patient ambulates out to the dining room this morning shortly after 0800; he is gruff with staff stating he thought he was going to be served breakfast and had been waiting "all this time!". Breakfast served and immediately staff begin asking him if they can get him anything, anticipating needs. Staff use a friendly but cautious approach to patient given behaviors documented last night. 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 At lunch the PROPOSAL ENGINEER from the medical team and psychiatrist rounded; he was appropriate with both disciplines, did not yell or demand to be dismissed. This afternoon staff again were able to engage him in conversation as DIL reported that he "loves to be around people". Prior to supper patient became slightly more anxious: repetitive in verbalizations and questions; asking to be discharged and saying he was told that the doctor was done running their tests. Voice was slightly raised but no physical evidence of increased agitation. Given patient's behaviors last night a call was placed to Dr. Bliss and a plan discussed. Received verbal "okay" to given Ativan 1mg at this time. Intensol administered.
--- NOTE | 2016-10-23 19:15 | NUR ---
Behavior Status/PRN f/u Following supper (patient consumed 100% independently) he sat in the day room next to a male patient and visited appropriately. He did wave down the LEAD PONY RIDER and asked sternly (almost demanding) about his belongings and when he would get them back. Patient informed that belongings were locked up per unit policy and they would be returned when he discharged. He accepted the answer and is currently watching television
[2016-10-23] MEDS ORDERED: HALOPERIDOL 1 MG TABLET PO PRN (22:00)
[2016-10-23] MEDS ORDERED: LORAZEPAM 1 MG TABLET PO PRN (22:00)
[2016-10-23] MEDS ORDERED: LORAZEPAM 2 MG/ML INJECTION IM PRN (22:00)
[2016-10-23] MEDS ORDERED: HALOPERIDOL 5 MG/ML INJECTION IM PRN (22:00)
[2016-10-23 22:36] VITALS: BP 148/93; PULSE 77; RESP 18; TEMP 97.7; O2SAT 94
--- NOTE | 2016-10-23 23:30 | NUR ---
bedtime pt sleeping in bed.
--- NOTE | 2016-10-24 05:37 | NUR ---
Chart Check 24 hour chart check completed
[2016-10-24 06:56] LABS: ANION GAP 12 MEQ/L (5-15); BUN/CREATININE RATIO 24 RATIO (6-26); CALCIUM 11.6 MG/DL (8.4-10.2); CHLORIDE 103 MEQ/L (98-107); CO2 - CARBON DIOXIDE 29 MEQ/L (22-30); CREATININE 1.4 MG/DL (0.8-1.5); GLOMERULAR FILTRATION RATE 48; GLUCOSE 105 MG/DL (75-110); PHOSPHORUS 3.2 MG/DL (2.5-4.5); SODIUM 144 MEQ/L (134-144)
--- NOTE | 2016-10-24 07:17 | NUR ---
shift summary pt remained minimally interactive with staff and others during shift. pt has not had any outbursts, verbal or physical aggression demonstrated during shift. pt responds well if his room is treated like an apartment in that staff should knock on door first and wait to be verbally "ok'd" to enter "his residence." pt has displayed anxiousness and agitation at times during cares but not violent. pt did allow me to do a physical assessment after pt decided on own to go to bed from watching tv earlier in the common room.
[2016-10-24 08:00] VITALS: BP 162/89; PULSE 92; RESP 18; TEMP 97.3; O2SAT 92
[2016-10-24] MEDS: TRIAMTERENE PO SCH (08:05)
[2016-10-24] MEDS: HCTZ PO SCH (08:05)
[2016-10-24] MEDS: --POM--AMLODIPINE 10 MG TABLET PO SCH (08:06)
[2016-10-24] MEDS: MINERALS PO SCH (08:06)
[2016-10-24] MEDS: ATENOLOL 25 MG TABLET PO SCH (08:06)
[2016-10-24] MEDS: FINASTERIDE 5 MG TABLET PO SCH (08:06)
[2016-10-24] MEDS: MULTIVIT PO SCH (08:06)
--- NOTE | 2016-10-24 13:53 | NUR ---
SLUMS SCORE Pt slums score was 13.
--- NOTE | 2016-10-24 14:55 | GENPN ---
Chela Subjective Date DATE: 10/24/16 TIME: 09:49 Subjective/Severity of Illness Medications Current Medications Medications (Trade) Dose Ordered Sig/Giancarlo Start Time Stop Time Status Last Admin Dose Admin Amlodipine Besylate (Norvasc) 10 mg DAILY 10/23/16 09:00 10/24/16 09:01 DC 10/24/16 08:06 10 MG Finasteride (Proscar) 5 mg DAILY 10/23/16 09:00 10/24/16 08:06 5 MG Multivitamins/ Minerals (Vision) 1 tab DAILY 10/23/16 09:00 10/24/16 08:06 1 TAB Triamterene/HCTZ (Maxzide-25) 1 tab DAILY 10/23/16 09:00 10/24/16 09:01 DC 10/24/16 08:05 1 TAB Miscellaneous Medication (May use PRN orders) 1 PRN PRN 10/22/16 16:00 Haloperidol (Haldol) 0.5 mg Q6H PRN 10/22/16 16:00 10/23/16 16:29 DC Lorazepam (Ativan) 0.5 mg Q6H PRN 10/22/16 16:00 10/23/16 16:29 DC Lorazepam (Ativan) 0.5 mg Q6H PRN 10/22/16 16:00 10/23/16 16:29 DC Haloperidol Lactate (Haldol 5 Mg/ml Inj) 0.5 mg Q6H PRN 10/22/16 16:00 10/23/16 16:29 DC Lorazepam (Ativan Intensol) 0.5 mg Q6H PRN 10/23/16 04:00 10/23/16 16:29 DC Haloperidol (Haldol Liquid) 0.5 mg Q6H PRN 10/23/16 04:00 10/23/16 16:29 DC Amlodipine Besylate (Norvasc) 10 mg DAILY 10/25/16 09:00 Triamterene/HCTZ (Maxzide-25) 1 tab DAILY 10/25/16 09:00 Atenolol (TENORMIN 25 mg) 25 mg DAILY 10/24/16 09:00 10/24/16 08:06 25 MG Haloperidol (Haldol) 1 mg Q6H PRN 10/23/16 22:00 Haloperidol Lactate (Haldol 5 Mg/ml Inj) 1 mg Q6H PRN 10/23/16 22:00 Haloperidol (Haldol Liquid) 1 mg Q6H PRN 10/23/16 22:00 Lorazepam (Ativan) 1 mg Q6H PRN 10/23/16 22:00 Lorazepam (Ativan) 1 mg Q6H PRN 10/23/16 22:00 Lorazepam (Ativan Intensol) 1 mg Q6H PRN 10/23/16 22:00 10/23/16 17:20 1 MG Subjective Patient seen and chart reviewed. Patient is in dayroom with peers on approach and is primarily upset that he is still in the hospital. He perseverates on discharge through interview and is irritable though redirectable. Per staff, patient continues to be agitated and anxious at times (including with cares) but not outright aggressive. Patient continues to lack insight into behavior other than admitting that he has longstanding behavior problems. Denies SI, HI, AVH. Good appetite. Psychotropic PRNs given in the past 24 hours: Ativan 1mg PO at 17:20 yesterday for increasing agitation. Patient agreeable to ARACELI/RIPPA as he feels he can return to home living independently. Start Time: 09:00 Stop Time: 09:20 Care >50% of this visit spent in counseling/coordination care. Generations Exam Vitals Vital Signs Date Time Temp Pulse Resp B/P Pulse Ox O2 Delivery O2 Flow Rate FiO2 10/24/16 08:00 97.3 92 18 162/89 92 Room Air Physical examination performed by the hospitalist. Height (Feet): 5 Height (Inches): 9.00 Mental Status Exam Muscle Strength/Tone: Normal Dressing: Casual Grooming: Good Attitude: Uncooperative, Argumentative Motor Activity: Normal Eye Contact: Good Speech: Normal Volume: Normal Rhythm: Appropriate Rhythm Sensory: Alert Orientation: Disoriented to time, Oriented to person, Oriented to place Mood: Angry Affect: Labile Rate of Thoughts: Appropriate Rate Thought Organization: Perseverations (on discharge) Associations: Illogical (at times) Abstract Reasoning: Poor abstract reasoning Thought Content: Paranoia (mild, toward family) Perception/Psychotic: Perception Normal Attention Span/Concentration: Distractable Language: Naming Intact Fund of Knowledge: Wilbert aware current events Memory: Poor-recent Suicidal Ideation: Denies Homicidal Ideation: Denies Insight: Limited Judgment: Limited Impulse Control: Poor Laboratory Tests Test 10/24/16 06:00 Turbidity < 20 Sodium Level 144MEQ/L Potassium Level 4.0MEQ/L Chloride Level 103MEQ/L Carbon Dioxide Level 29MEQ/L Anion Gap 12MEQ/L Blood Urea Nitrogen 34.0MG/DL Creatinine 1.4MG/DL Glomerular Filtration Rate Calc 48 BUN/Creatinine Ratio 24RATIO Glucose Level 105MG/DL Calculated Osmolality 285MOSM/KG Calcium Level 11.6MG/DL Phosphorus Level 3.2MG/DL Icterus Index < 2 Albumin 4.0G/DL Triglycerides Level Pending Cholesterol Level Pending LDL Cholesterol, Calculated Pending VLDL Cholesterol Pending HDL Cholesterol Direct Pending Cholesterol/HDL Ratio Pending Chemistry Specimen Hemolysis < 15 Rapid Plasma Reagin Pending Assessment and Plan (1) Major neurocognitive disorder Assessment: with behavioral disturbance 10/24/16: After discussion of risks/benefits, son/DPGUSTAVO Kwok consented to trial of Risperdal. Will start Risperdal 0.5mg PO q HS tonight. ARACELI/RIPPA ordered. (2) HTN (hypertension) Qualifiers: Qualified Codes: I10 - Essential (primary) hypertension DL FORBES MD Oct 24, 2016 09:49
--- NOTE | 2016-10-24 15:47 | NUR ---
WAKE UP TIME PATIENT WOKE UP AT 0800 AM THIS MORNING.
[2016-10-24 16:00] VITALS: BP 143/80; PULSE 95; RESP 18; TEMP 97.8; O2SAT 95
[2016-10-24] MEDS: LORAZEPAM INTENSOL 1mg/0.5ml ORAL SOLUTION SL PRN (17:16)
--- NOTE | 2016-10-24 18:08 | NUR ---
PRN/PRN FOLLOW UP PATIENT HAD FAMILY VISITING THIS EVENING, HE WAS QUESTIONING EVERYTHING THE FAMILY AND STAFF WAS SAYING TO HIM,HE WAS RAISING HIS VOICE IN THE DAY ROOM WHEN HE WAS TALKING TO FAMILY ASKING THEM WHY THEY PUT HIM HERE, HE WAS ALSO QUESTIONING THE NEED FOR VITAL SIGNS VERY OFTEN, STAFF TRIED TO EXPLAIN THE NEED FOR VITALS, FAMILY EXPLAIN TO HIM THAT THE POLICE WAS THE PEOPLE WHO GAVE THE ORDER TO BRING HIM HIM HERE, PATIENT WAS DIFFICULT TO REDIRECT, IT WAS SAID ON REPORT THAT PATIENT USUALLY GETS LOUD, RESTLESS AND ANXIOUS IN THE EVENINGS AND THAT OTHER PATIENTS GET ANXIOUS AND AFRAID OF HIM WHEN HE GETS LOUD. PRN ATIVAN INTENSOL 0.5MG PO WAS GIVE AT 1716. PATIENT HAS BEEN CALM AND RELAXED AFTER PRN MEDICATION, HE ATE DINNER AND SAT IN THE DAY ROOM, HE IS NOW WATCHING TV QUIETLY. WILL CONTINUE TO MONITOR FOR NEEDS OR BEHAVIORS.
--- NOTE | 2016-10-24 18:09 | NUR ---
SHIFT SUMMARY patient is AO x 3. patient was cooperative with assessment, he was not happy about having VS done in the morning but eventually he agree and allow RN to do VS. Patient has been out in the day room and dining room most of the day, he read the news paper after breakfast and watch TV throughout the day, No hallucinations noted, no aggressive behaviors noted, patient does get loud when he does not agree with something and argues, for example this morning he refused to take new medication that was prescribed, he said that he was not taking those before and he was not going to take it. Patient was loud and he was not able to understand why he needed new medication after it was explained to him. Patient refused to take hospitals medications he said he will only take from his home bottle medications, patient took his medications whole except new medications only after he saw this RN took the pills from his own home bottle medications. After several tries patient took new medication. Patient states he needs to get out of here to get medications refill. Patient denied any pain this shift. PRN medication was given this evening 0.5 mg ativan intensol PRN at 1716, (see PRN note) Patient was doing well after PRN, medication was effective. Patient denies needs or concerns at the moment.
[2016-10-24 20:21] VITALS: BP 141/76; PULSE 64; RESP 18; TEMP 97.9; O2SAT 96
[2016-10-24] MEDS: RISPERIDONE 0.5 MG TABLET PO SCH (21:00)
--- NOTE | 2016-10-24 23:48 | NUR ---
MID-SHIFT NOTE Pt A&O to person and place only, afebrile, vss, no c/o pain or n/v, remains on RA, BRP continent. Pt refused to take evening medications due to suspicion, pt agitated and argumentative. Pt calmed shortly after medication administration attempt. Pt up in chair in dayroom from 1900 to bedtime at 2245. Pt educated on all aspects of plan of care, all questions answered and concerns addressed. Will continue to monitor.
--- NOTE | 2016-10-25 02:26 | NUR ---
Chart Check 24 hour chart check completed
[2016-10-25 03:13] LABS: FOLATE 18.9 NG/ML (2.76-20)
--- NOTE | 2016-10-25 06:23 | NUR ---
Shift Summary Pt slept most of this TOD, up x1 to bathroom. Pt set off bed alarm, and yelled at staff to get out. Male RN attempted to assist patient back to bed, pt not tolerant of male nurse. Pt angry, aggravated, not following conversation, and repeatedly yelling "Get out of here" to staff. Pt wanting door closed, but refused to get back into bed. Pt sitting in chair with door open and visible from door way. Pt resting at this time. Will continue to monitor.
[2016-10-25 08:00] VITALS: BP 136/81; PULSE 74; RESP 18; TEMP 98.2; O2SAT 95
--- NOTE | 2016-10-25 08:00 | NUR ---
Sleep Pt slept total of 3.5 hours of sleep, interrupted sleep. Pt awake at this time and in no acute distress. Pt demanding this morning at the breakfast table.
[2016-10-25 08:38] VITALS: PULSE 74; RESP 18
[2016-10-25] MEDS: AMLODIPINE 10 MG TABLET PO SCH (08:38)
[2016-10-25] MEDS: ATENOLOL 25 MG TABLET PO SCH (08:38)
[2016-10-25] MEDS: FINASTERIDE 5 MG TABLET PO SCH (08:39)
[2016-10-25] MEDS: MINERALS PO SCH (08:40)
[2016-10-25] MEDS: MULTIVIT PO SCH (08:40)
[2016-10-25] MEDS: TRIAMTERENE/HCTZ 37.5mg/25mg TABLET PO SCH (08:50)
--- NOTE | 2016-10-25 13:24 | NUR ---
IMPLEMENTATION SPECIALIST--PSH/ADVANCE DIRECTIVE/[place] [facility] [place]'s D-I-L (Angy Pendleton) to gather information for psychosocial history (PSH). Pt. was born in [place], [place] He has been for 4 years. He has two sons (Shorty--[place] and Sundar--[employer]). Shorty is primary DPOA-HC and Sundar is listed as secondary. Pt. is a DNR. He has been living alone in [place] and managing his own finances. Pt. has been active in his community and the [employer]. 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 The family is looking for recommendation from the hospital regarding whether or not pt. is safe to discharge home or if he needs LTC. [facility] attempted to meet with pt. He is resistive and paranoid and not able to participate in interview. Addendum: 10/26/16 at 1330 by DL DRIVER Amended: Links added.
[2016-10-25 14:10] LABS: PHOSPHORUS 3.7 MG/DL (2.5-4.5)
--- NOTE | 2016-10-25 14:18 | PNPDOC ---
Subjective Date DATE: 10/25/16 TIME: 14:08 Ivone Shabazz was sitting in the dayroom. He didn't engage much in conversation today. He has been angry and agitated with staff. I informed him about his lab work, including a low vitamin B12 level. He replied that he could just take that medication at home. He denies any difficulty breathing or cough. No abdominal pain or GI complaints. He has been eating well. Objective Vital Signs Vital signs Vital Signs Date Time Temp Pulse Resp B/P Pulse Ox O2 Delivery O2 Flow Rate FiO2 10/25/16 08:38 74 18 10/25/16 08:00 98.2 136/81 95 Room Air Height (Feet): 5 Height (Inches): 9.00 Weight (Kilograms): 85.500 General General Appearance: Alert, Well Nourished, Well Developed, No Acute Distress Eyes (Brief) Eyes: FOUND: PERRL, NOT FOUND: scleral icterus ENMT (Brief) ENMT: FOUND: mucosa moist, NOT FOUND: pharnyx erythema Respiratory (Brief) Respiratory: FOUND: clear all cole, equal bilaterally Cardiovascular (Brief) Cardiac: FOUND: regular rate, regular rhythm Abdomen (Brief) Abdominal: FOUND: BS normo active x4, soft, NOT FOUND: distended, tender Extremities (Brief) Extremity : Extremity Finding: NOT FOUND: edema Musculoskeletal (Brief) Musculoskeletal: NOT FOUND: deformity Integumentary (Brief) Integumentary: FOUND: dry, pink, warm Psychiatric (Brief) Psychiatric: FOUND: alert, oriented (x2) Laboratory Laboratory Laboratory Tests 10/24/16 06:00 Sepsis Diagnostic Criteria Sepsis Confirmed/Suspected Infection: No Assessment & Plan Problems: (1) Vitamin B12 deficiency Status: Acute (2) Major neurocognitive disorder (3) Prostatism Status: Chronic (4) HTN (hypertension) Status: Chronic Qualifiers: Hypertension type: essential hypertension Qualified Codes: I10 - Essential (primary) hypertension (5) Dehydration with hypernatremia Status: Acute (6) Hypercalcemia Assessment Plan/Intensity of Service Blood pressure is doing better since atenolol was added. Sodium has improved to 144, however, slight increase noted in renal functions. May need to hold off on Maxzide if this continues. However, patient has been eating and drinking well. Hypercalcemia - check phos and PTH. Will repeat labs tomorrow morning. Psychiatric progress notes reviewed: Started Risperdal 0.5mg PO HS. ARACELI/RIPPA ordered. Code Status Do Not Resuscitate Hospital Course Summary Disclaimer The hospital course summary below is not to be considered part of the above Progress Note. Hospital Course Summary 10/22/16 Agree with admission to [facility]. At the time of evaluation, labs had not been yet obtained. We'll await results of workup to make further recommendations. Patient does have a history of hypertension, continue Maxzide and Norvasc. He has trace edema to bilateral lower extremities. Also history of prostatism and takes Proscar. Provide safe and supportive environment. 10/23/16- Patient continues to have aggressive behavior. Maintain safe environment- meds per attending. BP remains fairly elevated- add Atenolol. We may need to DC Maxzide if he remains clinically dry on labs Continue Norvasc, Proscar for BPH. Lab recheck pending in AM. 10/25/16 Blood pressure is doing better since atenolol was added. Sodium has improved to 144, however, slight increase noted in renal functions. May need to hold off on Maxzide if this continues. However, patient has been eating and drinking well. Hypercalcemia - check phos and PTH. Will repeat labs tomorrow morning. Psychiatric progress notes reviewed: Started Risperdal 0.5mg PO HS. ARACELI/RIPPA ordered SUZI CASSIDY APRN October 25, 2016 14:11
--- NOTE | 2016-10-25 15:04 | GENPN ---
Chela Subjective Date DATE: 10/25/16 TIME: 14:56 Subjective/Severity of Illness Medications Current Medications Medications (Trade) Dose Ordered Sig/Giancarlo Start Time Stop Time Status Last Admin Dose Admin Amlodipine Besylate (Norvasc) 10 mg DAILY 10/23/16 09:00 10/24/16 09:01 DC 10/24/16 08:06 10 MG Finasteride (Proscar) 5 mg DAILY 10/23/16 09:00 10/25/16 08:39 5 MG Multivitamins/ Minerals (Vision) 1 tab DAILY 10/23/16 09:00 Future Hold 10/25/16 08:40 1 TAB Triamterene/HCTZ (Maxzide-25) 1 tab DAILY 10/23/16 09:00 10/24/16 09:01 DC 10/24/16 08:05 1 TAB Miscellaneous Medication (May use PRN orders) 1 PRN PRN 10/22/16 16:00 Haloperidol (Haldol) 0.5 mg Q6H PRN 10/22/16 16:00 10/23/16 16:29 DC Lorazepam (Ativan) 0.5 mg Q6H PRN 10/22/16 16:00 10/23/16 16:29 DC Lorazepam (Ativan) 0.5 mg Q6H PRN 10/22/16 16:00 10/23/16 16:29 DC Haloperidol Lactate (Haldol 5 Mg/ml Inj) 0.5 mg Q6H PRN 10/22/16 16:00 10/23/16 16:29 DC Lorazepam (Ativan Intensol) 0.5 mg Q6H PRN 10/23/16 04:00 10/23/16 16:29 DC Haloperidol (Haldol Liquid) 0.5 mg Q6H PRN 10/23/16 04:00 10/23/16 16:29 DC Amlodipine Besylate (Norvasc) 10 mg DAILY 10/25/16 09:00 10/25/16 08:38 10 MG Triamterene/HCTZ (Maxzide-25) 1 tab DAILY 10/25/16 09:00 Atenolol (TENORMIN 25 mg) 25 mg DAILY 10/24/16 09:00 10/25/16 08:38 25 MG Haloperidol (Haldol) 1 mg Q6H PRN 10/23/16 22:00 Haloperidol Lactate (Haldol 5 Mg/ml Inj) 1 mg Q6H PRN 10/23/16 22:00 Haloperidol (Haldol Liquid) 1 mg Q6H PRN 10/23/16 22:00 Lorazepam (Ativan) 1 mg Q6H PRN 10/23/16 22:00 Lorazepam (Ativan) 1 mg Q6H PRN 10/23/16 22:00 Lorazepam (Ativan Intensol) 1 mg Q6H PRN 10/23/16 22:00 10/24/16 17:16 1 MG Risperidone (Risperdal) 0.5 mg HS 10/24/16 21:00 Cyanocobalamin (Vit. B-12) 2,000 mcg DAILY 10/26/16 09:00 Subjective Patient is an 86-year-old retired male who was admitted to [facility] on 10/22/16 due to increased confusion, paranoia and impulsivity reported by family. Patient seen and chart reviewed. Patient is in day-room with peers on approach and perseverates about discharge. Staff reports that patient was agitated earlier today and continues to be paranoid. Patient lacks insight into behavior other than admitting that he has longstanding behavior problems. Denies SI, HI, AVH. Good appetite. Psychotropic PRNs given in the past 24 : He got Ativan 0.5mg SL yesterday. Patient requires a lot of encouragement to take his medications and refused Risperidone 0.5mg last night. Time of Service: 10:15 Start Time: 10:15 Stop Time: 10:30 Care >50% of this visit spent in counseling/coordination care. [facility] Exam Vitals Vital Signs Date Time Temp Pulse Resp B/P Pulse Ox O2 Delivery O2 Flow Rate FiO2 10/25/16 08:38 74 18 10/25/16 08:00 98.2 136/81 95 Room Air Physical examination performed by the hospitalist. Height (Feet): 5 Height (Inches): 9.00 Mental Status Exam Muscle Strength/Tone: Weak Dressing: Casual Grooming: Fair Attitude: Argumentative Motor Activity: Agitation Eye Contact: Fair Speech: Normal Volume: Normal Rhythm: Appropriate Rhythm Sensory: Alert Orientation: Oriented to person, Oriented to place Mood: Neutral Affect: Restricted Rate of Thoughts: Appropriate Rate Thought Organization: Perseverations Associations: Loose-associations Abstract Reasoning: Impaired, concrete Computation: Poor Computation Thought Content: Delusions, Paranoia Attention Span/Concentration: Short Span Language: Naming Impaired Fund of Knowledge: Poor fund of knowledge Memory: Poor-immediate, Poor-recent Suicidal Ideation: None Homicidal Ideation: None Insight: Poor Judgment: Poor Impulse Control: Poor Laboratory Tests Test 10/25/16 13:34 Phosphorus Level 3.7MG/DL Parathyroid Hormone (Intact) Pending Assessment and Plan (1) Major neurocognitive disorder Assessment: with behavioral disturbance 10/24/16: After discussion of risks/benefits, son/DPGUSTAVO Kwok consented to trial of Risperdal. Will start Risperdal 0.5mg PO q HS tonight. KATHLEEN/RIPPA ordered. 10/25/16: Cont current medications. Awaiting on Kathleen/Rippa (2) HTN (hypertension) Qualifiers: Qualified Codes: I10 - Essential (primary) hypertension CECILIA HOPKINS MD October 25, 2016 14:59
--- NOTE | 2016-10-25 15:38 | STEVAL ---
Eval Subjective and History Date/Time of Eval DATE: 10/25/16 TIME: 15:27 Medical Diagnosis SPEECH THERAPY CONSULTATION FOR COGNITIVE EVALUATION Treatment Order: Assessment, Dev./Imp. tx plan Orientations: x 3, Cooperative Primary Complaint: MAJOR NEUROCOGNITIVE DX Pain: No Date of Onset of Primary Com: 10/25/2016 Clinical Test Results: RIPA COMPLETED Prior History of This Problem: No Patient's Goals: "TO GET OUT OF HERE" Significant Past Medical Hx: PMH: HTN, VENRTAL INCISIONAL HERNIA, PROSTATISM, DEMENTIA Medical History Form Reviewed: Yes Residence Type: Private home/apartment Current Functional Status: INCREASED CONFUSION, SAFETY RISK Education Comment [employer] educated patient on reasoning for evaluation. Patient was agreeable to evaluation. Subjective and History Comment: ARCHANA WAS EVALUATED IN HIS ROOM, HE WAS SITTING UPRIGHT IN HIS BEDSIDE RECLINER. HE HAD NO ACUTE C/O PAIN OR FATIGUE. HE WAS PLEASANTLY COOPERATIVE. REPORTED HE WISHED HE HAD HIS CELLPHONE- RN WAS NOTIFIED OF REQUEST FOLLOWING THE COMPLETION OF THE EVALUATION. Cognition Answer yes/no questions: Yes Follow simple commands: Yes Follow complex commands: No (REQUIRED REPITITIONS) Understands conversation: Yes ([place]) Comprehension Comments PATIENTS COMPREHENSION REDUCED SECONDARY TO [place]. PATIENT BENEFITED FROM INCREASED VOLUME FROM CONVERSATIONAL PARTNER, DECREASED DISTRACTIONS AND LOOKING AT THE PATIENT WHEN SPEAKING. Identifies a problem exists: Yes Identifies causes to situation: Yes Solving simple problems: Minimum Solving complex problems: Minimum % Words Intelligible: 100% % Sentence Intelligible: 100% % Conversation Intelligible: 100% Expression Comment: MINOR WORD FINDING DIFFICULTIES APPRECIATED CONSISTENT WITH AGING PROCESS. PATIENT FUNCTIONALLY COMMUNICATING WANTS AND NEEDS VERBALLY- VOCAL QUALITY FUNCTIONAL. WRITTEN COMMUNICATION WAS NOT ASSESSED AT THIS TIME. Repeats series number: Yes (REQUIRED REPITITION; LONGER DIGITS HE ERRORED ON) Repeats series word: Yes (PHONEMIC ERRORS SUCH "UREÑA" FOR "LAMP" AND "TWO" FOR "SHOE") Repeats sentence: Yes (PARTIALLY CORRET) Oriented to place: Yes Oriented to time: Yes Oriented to daily events: Yes Recalled visitors: Yes Recalled meal: Yes Recalled general inform: Yes Immediate Memory Score: 73 Immediate Memory Rate: Moderate 61-90th Percent Recent Memory Score: 60 Recent Memory Rate: Severe 31-60th Percent Recent Time [place] Score: 98 Recent Time [place] Rate: WFL >90th Percent Remote Time [place] Score: 78 Remote Time [place] Rate: Moderate 61-90th Percent Spatial [place] Score: 93 Spatial [place] Severity Rate: WFL >90th Percent Orientation to Enviro Score: 67 Orientation to Enviro Rate: Moderate 61-90th Percent Recall of General Info Score: 93 Recall of General Info Rate: WFL >90th Percent Problem Solving/Abstract Score: 78 Problem Solving/Abstract Rate: Moderate 61-90th Percent Organization Score: 56 Organization Severity Rating: Severe 31-60th Percent Auditory Processing/Retention: 58 Auditory Processing/Retention: Severe 31-60th Percent Assessment/Plan of Care Speech Therapy Impressions: PATIENT PRESENTS WITH SEVERE AUDITORY RETENTION AND ORGANIZATION. PATIENT EXHIBITED MODERATED DEFICITS WTIH IMMMEDIATE MEMORY, RECENT MEMORY, REMOTE MEMORY, ORIENTATION TO ENVIRONMENT, WELL PROBLEM SOLVING. RECOMMENDATIONS OUTLINED BELOW. ST Treatment Plan: Evaluation Only ST Treatment Plan Frequency: N/A Treatment Plan Duration: N/A Plan of Care Comment PATIENT WOULD BENEFIT FROM SUPERVISION UPON DISCHARGE. PATIENT WOULD BENEFIT FROM WRITTEN WELL VERBAL DIRECTION SECONDARY TO [place]. Date of Visit 10/25/16 Time Visit Began: 14:43 Time Visit Ended: 15:10 ST Assess/Plan of Care: ST Treatment Charge: Speech Eval Minutes of Individual Therapy: 27 ST FIM Comprehension Ability: 4 Minimal Assistance Social Interaction: 5 Supervision/Setup Problem Solvin Minimal Assistance Memory: 4 Minimal Assistance Expression Ability: 5 Supervision/Setup CAYDEN SUNG MS CCC-[employer] October 25, 2016 15:31
[2016-10-25 16:00] VITALS: BP 149/83; PULSE 63; RESP 16; TEMP 98.7; O2SAT 92
--- NOTE | 2016-10-25 16:00 | NUR ---
DEVAN CM LEFT VM FOR TIAN PT SON. CM EXPLAINED ROLE AND PROVIDED CONTACT INFORMATION.
--- NOTE | 2016-10-25 19:44 | NUR ---
Summary Pt remains A/O to self, , place and part of date. Pt has flat affect and isolates in room if not eating at the dining room area. Pt has good appetite. Pt takes medications only if they are in his own RX bottles. Pt refused maxide this morning because "I don't take that pill!." When Pt talks he is loud and tense, but starts to decrease in quietness after talking a bit. Pt did ask if he had "passed the test" today. Pt told that he didn't pass the test and the test showed he needed assistance in some areas. Pt wanting to see test and SLUMS shown to him. Pt has not had continual outburst of yelling, but has been gruff and sarcastic at times when needing something. Pt encouraged to drink fluids but Pt refused even when offered a closed container of fluid. Pt has been up with stand by assist but doesn't like staff "following" him. Pt remains to have steady gait while he is up. Will continue to monitor. Call light in reach.
[2016-10-25 20:00] VITALS: BP 140/73; PULSE 67; RESP 20; TEMP 98.3; O2SAT 93
[2016-10-25] MEDS: RISPERIDONE 0.5 MG TABLET PO SCH (21:00)
--- NOTE | 2016-10-25 21:30 | NUR ---
patient status Pt alert and oriented x2, pt is guarded at the start of shift, pt sitting in recliner in room, pt took a shower with set up by staff. Pt agreed to come out to the dayroom and watch tv, pt agreeable to have vital taken and to have his lungs listened to. Pt refused to take hs meds with approaches from two different staff members. Pt states "I will only take meds in the morning in my own pill bottles." pt request to go to the pharmacy tomorrow to flower buncher or picker his medications. Pt agreed to stay tonight, pt is out in dayroom watching tv and napping in recliner. will monitor pt.
--- NOTE | 2016-10-25 23:00 | NUR ---
bedtime Pt went to bed and fell asleep at 2300, pt is in bed with 2 bed rails up.
--- NOTE | 2016-10-26 00:26 | NUR ---
Chart Check 24 hour chart check completed
--- NOTE | 2016-10-26 02:30 | NUR ---
patient status Pt woke up, upset came out into hallway demanded his clothing, pt yelled, insulted, and cursed at staff. Pt informed that his clothes were in the laundry, pt yelled "when are you girls going to learn to leave my shit alone." Pt reminded to talk softer that other patients are trying to sleep. Pt yelled "you girls need to stay away from my stuff." Pt yelled "go get my clothing" Pt reminded that his clothes were getting washed and would be returned within the hour. "Pt demanded again, go get my clothing" pt told that his clothes were wet and he would have to wait until the clothing was dry. Pt turned went back into his room and slammed the door shut.
--- NOTE | 2016-10-26 06:41 | NUR ---
shift summary Pt is alert and oriented x2, pt is confused at times, pt allowed assessment and vital signs, pt did take a shower, pt refused to take any hs meds. Pt states "I do not take medication at night." Pt sat in dayroom until 22:30 pt then went to bed. Pt up at 0230 (see previous note), pt laundry done and laundry basket at pt nurse server assistant. Pt has been sleeping in bed since 03:00 will monitor pt.
[2016-10-26 08:00] VITALS: BP 118/67; PULSE 60; RESP 18; TEMP 98.2; O2SAT 93
[2016-10-26] MEDS: FINASTERIDE 5 MG TABLET PO SCH (08:14)
[2016-10-26] MEDS: TRIAMTERENE/HCTZ 37.5mg/25mg TABLET PO SCH (08:16)
[2016-10-26] MEDS: ATENOLOL 25 MG TABLET PO SCH (08:16)
[2016-10-26] MEDS: CYANOCOBALAMIN (B-12) 500mcg TABLET PO SCH (08:17)
[2016-10-26] MEDS: AMLODIPINE 10 MG TABLET PO SCH (08:17)
[2016-10-26 10:20] VITALS: BP 118/67; PULSE 60; RESP 18; TEMP 98.2; O2SAT 93
--- NOTE | 2016-10-26 10:52 | NUR ---
ZONE SUPERVISOR FIREARMS--FAMILY CONTACT [facility] received phone call from pt's youngest son, Sundar. He was wanting to know possible recommendation for discharge plans based on results of recent cognitive testing. This Sw reviewed results of ARACELI and LAYLA and advised son that recommendation is for pt. to have supervision and assistance. Son stated he agrees with that recommendation and he thinks his brother, Shorty, is having a difficult time making that decision. He asked this SW what type of facility they should consider and this SW suggested they look into [facility] with memory care support. Sundar stated he was interested in [facility] in [place]. His works there and they have full continuum of care. He is available for a family meeting and thinks it would be helpful for the whole family. The son has been reluctant is visit or talk with pt. because he did not want to upset the patient. The son was encouraged to call the patient and to validate his feelings but not argue. This SW agreed to talk with Dr. Gonzalez about setting up a family meeting some time this week.
--- NOTE | 2016-10-26 13:15 | NUR ---
WAKE UP NOTE patient woke up at 0800 this morning.
[2016-10-26] MEDS ORDERED: MILK OF MAGNESIA 30 ML SUSP PO PRN (15:45)
--- NOTE | 2016-10-26 16:06 | NUR ---
CM SPOKE WITH BELLA AND SPOUSE [place] AND THEY ARE PLANNING TO HAVE FAMILY MEETING AT [facility] REGARDING THE D/C PLAN FOR PT AND THEY WILL CONTACT CM AND CM WILL ASSIST WITH NEEDS. FAMILY AWARE TO CONTACT CM IF NEEDS ARISE PRIOR TO FAMILY MEETING.
[2016-10-26 16:15] VITALS: BP 119/72; PULSE 67; RESP 16; TEMP 97.8; O2SAT 92
--- NOTE | 2016-10-26 16:32 | NUR ---
GLASS BEVELER--FAMILY MEETING SCHEDULED Per request of Dr. Gonzalez, [facility] made phone contact with both Shorty and Sundar Childress regarding family meeting. Both have agreed to family meeting on 10/27/16 at 1500.
--- NOTE | 2016-10-26 17:56 | NUR ---
SHIFT SUMMARY Patient is AO x 3, speech is clear and appropriate, he is able to verbalize needs, patient was cooperative with cares, he was not complaint with medication, he refused new medications he says he does not take those at home and only wants to take what he usually takes at home, patient requested to have ocuvite vitamin but medication is currently on hold, this RN tried to explain why is important for patient to take prescribed medications, I also tried to explain that mediations are the same from what he takes at home they just look different, patient was not able to understand, he was suspicious of staff, he said the doctors here lied to him, patient only agree to take two of his mediations, Eventually patient was able to take the rest of his medications crushed in pudding. Patient las BM was unknown and had not had one since admission, MOM was offered and refused in the morning, this RN offered again in the evening and patient agree to take it, patient states he usually goes 2 weeks without having a BM. MOM was successful and he had a large form BM this evening. No hallucinations noted, he was argumentative in the morning with medication administration but was better when the subject change. Patient was out in the dining room most of the day, he did not complain of pain, patient denies needs or concerns at the moment.
--- NOTE | 2016-10-26 18:33 | GENPN ---
Chela Subjective Date DATE: 10/26/16 TIME: 18:21 Subjective/Severity of Illness Medications Current Medications Medications (Trade) Dose Ordered Sig/Giancarlo Start Time Stop Time Status Last Admin Dose Admin Amlodipine Besylate (Norvasc) 10 mg DAILY 10/23/16 09:00 10/24/16 09:01 DC 10/24/16 08:06 10 MG Finasteride (Proscar) 5 mg DAILY 10/23/16 09:00 10/26/16 08:14 5 MG Multivitamins/ Minerals (Vision) 1 tab DAILY 10/23/16 09:00 Future Hold 10/25/16 08:40 1 TAB Triamterene/HCTZ (Maxzide-25) 1 tab DAILY 10/23/16 09:00 10/24/16 09:01 DC 10/24/16 08:05 1 TAB Miscellaneous Medication (May use PRN orders) 1 PRN PRN 10/22/16 16:00 Haloperidol (Haldol) 0.5 mg Q6H PRN 10/22/16 16:00 10/23/16 16:29 DC Lorazepam (Ativan) 0.5 mg Q6H PRN 10/22/16 16:00 10/23/16 16:29 DC Lorazepam (Ativan) 0.5 mg Q6H PRN 10/22/16 16:00 10/23/16 16:29 DC Haloperidol Lactate (Haldol 5 Mg/ml Inj) 0.5 mg Q6H PRN 10/22/16 16:00 10/23/16 16:29 DC Lorazepam (Ativan Intensol) 0.5 mg Q6H PRN 10/23/16 04:00 10/23/16 16:29 DC Haloperidol (Haldol Liquid) 0.5 mg Q6H PRN 10/23/16 04:00 10/23/16 16:29 DC Amlodipine Besylate (Norvasc) 10 mg DAILY 10/25/16 09:00 10/26/16 08:17 10 MG Triamterene/HCTZ (Maxzide-25) 1 tab DAILY 10/25/16 09:00 10/26/16 08:16 1 TAB Atenolol (TENORMIN 25 mg) 25 mg DAILY 10/24/16 09:00 10/26/16 08:16 25 MG Haloperidol (Haldol) 1 mg Q6H PRN 10/23/16 22:00 Haloperidol Lactate (Haldol 5 Mg/ml Inj) 1 mg Q6H PRN 10/23/16 22:00 Haloperidol (Haldol Liquid) 1 mg Q6H PRN 10/23/16 22:00 Lorazepam (Ativan) 1 mg Q6H PRN 10/23/16 22:00 Lorazepam (Ativan) 1 mg Q6H PRN 10/23/16 22:00 Lorazepam (Ativan Intensol) 1 mg Q6H PRN 10/23/16 22:00 10/24/16 17:16 1 MG Risperidone (Risperdal) 0.5 mg HS 10/24/16 21:00 Cyanocobalamin (Vit. B-12) 2,000 mcg DAILY 10/26/16 09:00 10/26/16 08:17 2,000 MCG Magnesium Hydroxide (Mom) 30 ml DAILY PRN 10/26/16 15:45 10/26/16 15:38 30 ML Subjective Patient is an 86-year-old retired male who was admitted to [facility] on 10/22/16 due to increased confusion, paranoia and impulsivity reported by family. Patient seen and chart reviewed. Patient is in day-room with peers on approach and perseverates about discharge. Staff reports he has been refusing his medications and appears to be suspicious about staff in the hospital. Patient reports that a doctor had lied to him about the similarity between diesel and gasoline and this makes him not to believe the medications. He has poor abstraction and lacks insight into his mental state. Denies SI, HI, AVH. Good appetite. He may benefit from a trial of Depakote sprinkles and will discuss medication with his DPOA. Sleep:10 hours. Time of Service: 14:15 Start Time: 14:15 Stop Time: 14:30 Care >50% of this visit spent in counseling/coordination care. [facility] Exam Vitals Vital Signs Date Time Temp Pulse Resp B/P Pulse Ox O2 Delivery O2 Flow Rate FiO2 10/26/16 16:15 97.8 67 16 119/72 92 Room Air Physical examination performed by the hospitalist. Height (Feet): 5 Height (Inches): 9.00 Mental Status Exam Muscle Strength/Tone: Normal Dressing: Casual Grooming: Disheveled Attitude: Suspicious Motor Activity: Normal Eye Contact: Good Speech: Normal Volume: Loud (due to SILETZ TRIBE) Rhythm: Appropriate Rhythm Sensory: Alert Orientation: Oriented to person Mood: Anxious Affect: Restricted Rate of Thoughts: Appropriate Rate Thought Organization: Disorganized Associations: Illogical Abstract Reasoning: Impaired, concrete Thought Content: Paranoia Perception/Psychotic: Psychotic Attention Span/Concentration: Distractable Language: Naming Impaired Fund of Knowledge: Poor fund of knowledge Memory: Poor-immediate, Poor-recent Suicidal Ideation: None Homicidal Ideation: None Insight: Poor Judgment: Poor Impulse Control: Poor Assessment and Plan (1) Major neurocognitive disorder Assessment: with behavioral disturbance 10/24/16: After discussion of risks/benefits, son/DPOA Sundar consented to trial of Risperdal. Will start Risperdal 0.5mg PO q HS tonight. KATHLEEN/RIPPA ordered. 10/25/16: Cont current medications. Awaiting on Kathleen/Rippa 10/26/16: Discuss starting Depakote sprinkles with patient's DPOA. (2) HTN (hypertension) Qualifiers: Qualified Codes: I10 - Essential (primary) hypertension CECILIA HOPKINS MD October 26, 2016 18:29
--- NOTE | 2016-10-26 18:45 | NUR ---
FAMILY COMMUNICATION FAMILY (DAYANARA OVERTON) WAS CALLED PER DR. HOPKINS ORDERS ABOUT STARTING PATIENT ON DEPAKOTE, FAMILY WAS UPDATED ON PATIENT STATUS, AND PATIENT REFUSING MEDICATIONS, FAMILY AGREE WITH DR. HOPKINS DECISION ON STARTING PATIENT ON DEPAKOTE.
[2016-10-26 19:55] VITALS: BP 146/82; PULSE 72; RESP 18; TEMP 98.1
[2016-10-26] MEDS: RISPERIDONE 0.5 MG TABLET PO SCH (21:00)
[2016-10-26 21:57] VITALS: RESP 18
--- NOTE | 2016-10-27 01:23 | NUR ---
Chart Check 24 hour chart check completed
--- NOTE | 2016-10-27 01:23 | NUR ---
Bed time Pt went to bed at 1945 and was asleep at 1999. Pt awake at 2114 and back asleep at 2229. No sleep during day hours. Currently sleeping. Will continue to monitor
--- NOTE | 2016-10-27 02:00 | NUR ---
Mid shift status Pt was sitting in day room at beginning of shift, dozing on and off in recliner. Pt allowed vitals to be obtained. Pt alert to person and place. Up SBA and steady gait. No assistive device used. Pt walked to his room to go to bed at 1944. Entered pt room at that time to complete assessment. Pt was hesitant at first. Explained my position on the unit and the need for the assessment. Pt was cooperative then. Denies pain. Denies SOA. Pt was lying in bed with his clothes and his coat on. When asked if he would like to remove his coat and get into a gown to sleep in, pt refused, adamant about remaining in everything he was wearing. Pt noncompliant with HS med, refusing every time when attempted. Asked if he would like pudding or ice cream and pt refused everything. Pt went to sleep at 1999. Was up at 2114, setting off bed alarm. When staff ran to his room to turn off alarm, pt was angry and yelling "Get out of here, get out of my room!". Explained to pt why staff was in his room and pt stated " Get out of this rape room now!". Attempts to reassure pt this is a hospital and we are nurses and CNAs, were not successful. Pt continued yelling for us to get out. I explained to the pt about safety and he did not want to listen, stating "I can do whatever I want to do here!". I then assured pt that I would leave the room once he was safely back in bed. Pt then returned to his bed and once again yelled "Get out now!". I tried to cover pt up and he refused to be covered. When closing his door partially, pt yelled to close his door all the way and if I didn't he was going to get up and lock his door from the inside. Pt was agitated and belligerent at that time. Pt did not display any physical aggression. No PRNs given. Pt fell back to sleep at 2229. Currently sleeping. Will continue to monitor
--- NOTE | 2016-10-27 05:27 | NUR ---
Summary Pt has been sleeping since 2229, but had slept 1.25 hours prior to that. Pt has not had any further outbursts or yelling at staff since last status note, due to sleeping. Alert x 2. Up SBA. Pt has been noncompliant with HS meds. Pt gets agitated and angry when staff comes into his room. Pt has not displayed any physical aggression this shift. No PRNs given. Currently sleeping. Bed rails up x 2 and alarm on. Will continue to monitor
[2016-10-27] MEDS: AMLODIPINE 10 MG TABLET PO SCH (07:26)
[2016-10-27] MEDS: ATENOLOL 25 MG TABLET PO SCH (07:26)
[2016-10-27] MEDS: TRIAMTERENE/HCTZ 37.5mg/25mg TABLET PO SCH (07:26)
--- NOTE | 2016-10-27 07:30 | NUR ---
Pt Assessment and Sleep time Reported asleep at 2230, noted sitting in chair in room. Pt oriented to self and month, thinks it is 2018. Denies pain, reports she "doesn't need" nurse and that he doesn't understand why he is here. Pt verbally upset and insistent on taking own medications. Took Bp and explained medications supplied by hospital are scanned and supplied differently than his home meds. Pt did agree that BP this a.m. is elevated. BP meds crushed and placed in pt's coffee and drank coffee. Pt did agree to take Proscar and Vit. B pills whole with water.
[2016-10-27 08:00] VITALS: RESP 16
[2016-10-27 08:10] VITALS: BP 163/81; PULSE 58; RESP 16; TEMP 98; O2SAT 96
[2016-10-27] MEDS: FINASTERIDE 5 MG TABLET PO SCH (08:18)
[2016-10-27] MEDS: CYANOCOBALAMIN (B-12) 500mcg TABLET PO SCH (08:19)
--- NOTE | 2016-10-27 12:40 | NUR ---
Pt Behavior Pt was asked if he wanted to shave and obtained his shaver from the office. After short interval nurse returned to pt.'s room to retrieve shaver. Pt yells "why are you in here while I am showering. Get Out! Pt was standing at sink with all his clothes on and no shower in progress when nurse entered. Pt abruptly shut the door in nurses face. Tone of voice was loud enough that staff in office and day room could here his comments. Order Noted for Risperdal 0.5 mg dissolvable and placed in coffee and offered to pt by other nurse.
[2016-10-27] MEDS: RISPERIDONE 0.5 MG PO ONE ×2 (13:00→13:09)
--- NOTE | 2016-10-27 13:23 | GENPN ---
Chela Subjective Date DATE: 10/27/16 TIME: 13:14 Subjective/Severity of Illness Medications Current Medications Medications (Trade) Dose Ordered Sig/Giancarlo Start Time Stop Time Status Last Admin Dose Admin Amlodipine Besylate (Norvasc) 10 mg DAILY 10/23/16 09:00 10/24/16 09:01 DC 10/24/16 08:06 10 MG Finasteride (Proscar) 5 mg DAILY 10/23/16 09:00 10/27/16 08:18 5 MG Multivitamins/ Minerals (Vision) 1 tab DAILY 10/23/16 09:00 Future Hold 10/25/16 08:40 1 TAB Triamterene/HCTZ (Maxzide-25) 1 tab DAILY 10/23/16 09:00 10/24/16 09:01 DC 10/24/16 08:05 1 TAB Miscellaneous Medication (May use PRN orders) 1 PRN PRN 10/22/16 16:00 Haloperidol (Haldol) 0.5 mg Q6H PRN 10/22/16 16:00 10/23/16 16:29 DC Lorazepam (Ativan) 0.5 mg Q6H PRN 10/22/16 16:00 10/23/16 16:29 DC Lorazepam (Ativan) 0.5 mg Q6H PRN 10/22/16 16:00 10/23/16 16:29 DC Haloperidol Lactate (Haldol 5 Mg/ml Inj) 0.5 mg Q6H PRN 10/22/16 16:00 10/23/16 16:29 DC Lorazepam (Ativan Intensol) 0.5 mg Q6H PRN 10/23/16 04:00 10/23/16 16:29 DC Haloperidol (Haldol Liquid) 0.5 mg Q6H PRN 10/23/16 04:00 10/23/16 16:29 DC Amlodipine Besylate (Norvasc) 10 mg DAILY 10/25/16 09:00 10/27/16 07:26 10 MG Triamterene/HCTZ (Maxzide-25) 1 tab DAILY 10/25/16 09:00 10/27/16 07:26 1 TAB Atenolol (TENORMIN 25 mg) 25 mg DAILY 10/24/16 09:00 10/27/16 07:26 25 MG Haloperidol (Haldol) 1 mg Q6H PRN 10/23/16 22:00 Haloperidol Lactate (Haldol 5 Mg/ml Inj) 1 mg Q6H PRN 10/23/16 22:00 Haloperidol (Haldol Liquid) 1 mg Q6H PRN 10/23/16 22:00 Lorazepam (Ativan) 1 mg Q6H PRN 10/23/16 22:00 Lorazepam (Ativan) 1 mg Q6H PRN 10/23/16 22:00 Lorazepam (Ativan Intensol) 1 mg Q6H PRN 10/23/16 22:00 10/24/16 17:16 1 MG Risperidone (Risperdal) 0.5 mg HS 10/24/16 21:00 10/27/16 10:32 DC Cyanocobalamin (Vit. B-12) 2,000 mcg DAILY 10/26/16 09:00 10/27/16 08:19 2,000 MCG Magnesium Hydroxide (Mom) 30 ml DAILY PRN 10/26/16 15:45 10/26/16 15:38 30 ML Risperidone (Risperdal) 0.5 mg 1730 10/27/16 17:30 10/27/16 17:30 DC Risperidone (Risperdal M) 0.5 mg 1730 10/27/16 17:30 Subjective Patient is an 86-year-old retired male who was admitted to [facility] on 10/22/16 due to increased confusion, paranoia and impulsivity reported by family. Patient seen and chart reviewed. Patient is in day-room with peers on approach and perseverates about his medications not been the same as the ones he takes at home. He is suspicious about the staff and feels likes like his privacy is being invaded whenever staff checks on him. He is particularly suspicious about the female staff and calls them non-pleasant names. Patient reportedly refused his night time medications last night. 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 He has poor abstraction and lacks insight into his mental state. He later agreed to take a Risperidone M-tab this afternoon but refused it when offered Denies SI, HI, AVH. Good appetite. He may benefit from a trial of Depakote sprinkles and will discuss medication with his DPOA during the family meeting today. FAMILY MEETING 1430 on 10/27/16: In attendance were 2 of is sons and DPOA( Shorty and Sundar) and the SW. Family reports progression of cognitive impairment over the last 4 to 5 years. The symptoms became more prominent after patient's . It began with impaired memory and later poor executive function. 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 There has been loss of visuo-spatial ability and he has recently been developing shuffling gait. Shorty reports that patient was recently driving in the middle of the road and it was recommended to family for patient not drive anymore. During the meeting, psychoeducation was provided to family on the various types of impaired cognition. It was explained to family, that given his paranoia and behavioral disturbance, he may benefit from anti-psychotic. Discussed the risk vs benefit of using anti-psychotic, mood stabilizer and even Namenda with the family and they were okay with using the medication. Discussed with family that patient will require 24-hours supervision and they will work with SW to identify which option is best suited for them. All of their questions were answered. Sleep:8 hours. SLUMS on admission: 13 Time of Service: 10:15 Start Time: 10:15 Stop Time: 10:30 Care >50% of this visit spent in counseling/coordination care. Generations Exam Vitals Vital Signs Date Time Temp Pulse Resp B/P Pulse Ox O2 Delivery O2 Flow Rate FiO2 10/27/16 08:10 98.0 58 16 163/81 96 Room Air Physical examination performed by the hospitalist. Height (Feet): 5 Height (Inches): 9.00 Mental Status Exam Muscle Strength/Tone: Normal Dressing: Casual Grooming: Disheveled Attitude: Suspicious, Tense Motor Activity: Normal Eye Contact: Fair Speech: Normal Volume: Loud (when agitated) Rhythm: Appropriate Rhythm Sensory: Alert Orientation: Disoriented to time, Disoriented to place, Disoriented to situation, Oriented to person Mood: Irritable, Angry Affect: Exaggerated Rate of Thoughts: Appropriate Rate Thought Organization: Disorganized, Perseverations Associations: Loose-associations Abstract Reasoning: Impaired, concrete Computation: Poor Computation Thought Content: Delusions Attention Span/Concentration: Distractable Language: Naming Impaired Fund of Knowledge: Poor fund of knowledge Memory: Poor-immediate, Poor-recent Suicidal Ideation: None Homicidal Ideation: None Insight: Poor Judgment: Poor Impulse Control: Poor Assessment and Plan (1) Major neurocognitive disorder Assessment: with behavioral disturbance 10/24/16: After discussion of risks/benefits, son/DPOA Sundar consented to trial of Risperdal. Will start Risperdal 0.5mg PO q HS tonight. KATHLEEN/RIPPA ordered. 10/25/16: Cont current medications. Awaiting on Kathleen/Rippa 10/26/16: Discuss starting Depakote sprinkles with patient's DPOA. 10/27/16: Change Risperidone to M-tab formulation. Consider adding Depakote after discussion with family. Depakote Sprinkles 125mg BID (2) HTN (hypertension) Qualifiers: Qualified Codes: I10 - Essential (primary) hypertension CECILIA HOPKINS MD October 27, 2016 13:21
--- NOTE | 2016-10-27 13:49 | NUR ---
PRN Med Checked coffee offered to pt and still has not drank it. Offered other liquids and refuses them. Pt has therefore not drank coffee with Risperdal in it.
--- NOTE | 2016-10-27 14:02 | NUR ---
Pt Status Pt approached in room after knock on door. Pt has hat and coat on and belongings folded and stacked next to him and reports he is waiting to go home. No yelling or belligerence at present.
--- NOTE | 2016-10-27 16:20 | NUR ---
Risperdal Dose and Belligerent Response to family Scheduled for 1729 given earlier as patient voiced to social work professor and sons that he would take med. Pt continued to require much explanation and states she wants his own meds. Explained what meds received this a.m. and that this is new medication. Pt yells at sons that "You don't care about me, and you just want my money." One son tearful and reports "I am done." and then leaves the room and unit. Second son proceeds to follow first son. Pt continued angry tone to nurse and states "you are lying to me." Did take the Risperdal, and one son did return to room. Pt sits with arms crossed and red face and tense. Pt not receptive to explanations and teaching about meds and goals.
--- NOTE | 2016-10-27 16:26 | PNPDOC ---
Subjective Date DATE: 10/27/16 TIME: 16:14 Subjective Mele is seen today while sitting in the day room in a rocking chair. He is alert and pleasant during examination. He denies all pain, or shortness of breath. Reports appetite is good. Medically appears to be stable. Objective Vital Signs Vital signs Vital Signs Date Time Temp Pulse Resp B/P Pulse Ox O2 Delivery O2 Flow Rate FiO2 10/27/16 08:10 98.0 58 16 163/81 96 Room Air Height (Feet): 5 Height (Inches): 9.00 Weight (Kilograms): 85.500 General General Appearance: Alert, Orientated x 1, Cooperative, No Acute Distress Eyes (Brief) Eyes: FOUND: EOMI ENMT (Brief) ENMT: FOUND: mucosa moist, normal dentition, NOT FOUND: pharnyx erythema Neck (Brief) Neck: FOUND: midline, NOT FOUND: adenopathy, carotid bruits, tracheal deviation Respiratory (Brief) Respiratory: FOUND: clear all cole, equal bilaterally, NOT FOUND: wheezes Cardiovascular (Brief) Cardiac: FOUND: regular rate, regular rhythm, NOT FOUND: murmur, pedal edema Capillary Refill: <2 sec Abdomen (Brief) Abdominal: FOUND: BS normo active x4, soft, NOT FOUND: distended, tender Lymphatic (Brief) Lymphatic: NOT FOUND: adenopathy Musculoskeletal (Brief) Musculoskeletal: NOT FOUND: tenderness Integumentary (Brief) Integumentary: FOUND: dry, pink, warm Neurologic (Brief) Neurological: FOUND: cranial 2-12 intact Psychiatric (Brief) Psychiatric: FOUND: alert, attentive, normal affect Sepsis Diagnostic Criteria Sepsis Confirmed/Suspected Infection: No Assessment & Plan Problems: (1) Vitamin B12 deficiency Status: Acute (2) Major neurocognitive disorder (3) Prostatism Status: Chronic (4) HTN (hypertension) Status: Chronic Qualifiers: Hypertension type: essential hypertension Qualified Codes: I10 - Essential (primary) hypertension (5) Dehydration with hypernatremia Status: Acute (6) Hypercalcemia (7) Elevated parathyroid hormone Assessment Plan/Intensity of Service 10/27/16 Serum calcium remains elevated, as well as PTH. Patient appears to be asymptomatic. May be a primary hyperparathyroidism versus malignant Attempted to contact Dr Alvarez however he is out of town until wednesday 11/01. Will likely need further outpatinet follow up Otherwise is medically stable BP is mildly elevated Continue with psychiatric care as per Dr Gonzalez Code Status Do Not Resuscitate Hospital Course Summary Disclaimer The hospital course summary below is not to be considered part of the above Progress Note. Hospital Course Summary 10/22/16 Agree with admission to generations. At the time of evaluation, labs had not been yet obtained. We'll await results of workup to make further recommendations. Patient does have a history of hypertension, continue Maxzide and Norvasc. He has trace edema to bilateral lower extremities. Also history of prostatism and takes Proscar. Provide safe and supportive environment. 10/23/16- Patient continues to have aggressive behavior. Maintain safe environment- meds per attending. BP remains fairly elevated- add Atenolol. We may need to DC Maxzide if he remains clinically dry on labs Continue Norvasc, Proscar for BPH. Lab recheck pending in AM. 10/25/16 Blood pressure is doing better since atenolol was added. Sodium has improved to 144, however, slight increase noted in renal functions. May need to hold off on Maxzide if this continues. However, patient has been eating and drinking well. Hypercalcemia - check phos and PTH. Will repeat labs tomorrow morning. Psychiatric progress notes reviewed: Started Risperdal 0.5mg PO HS. ARACELI/RIPPA ordered 10/27/16 Serum calcium remains elevated, as well as PTH. Patient appears to be asymptomatic. May be a primary hyperparathyroidism versus malignant Attempted to contact Dr Alvarez however he is out of town until wednesday 11/01. Will likely need further outpatinet follow up Otherwise is medically stable BP is mildly elevated Continue with psychiatric care as per NABOR Kohli APRN October 27, 2016 16:25
[2016-10-27] MEDS: RISPERIDONE 0.5 MG PO SCH (16:29)
[2016-10-27 17:00] VITALS: BP 135/80; PULSE 64; RESP 16; TEMP 98; O2SAT 98
--- NOTE | 2016-10-27 17:07 | NUR ---
FIELD OPERATIONS FARM MANAGER--FAMILY MEETING Dr. Gonzalez and this SW met with pt.'s sons, Shorty and Sundar Childress. Dr. Gonzalez reviewed results of current medical tests and provided update on patient's status at the hospital. Recommendation to the family is that the patient is going to need [address] Gonzalez explained that the progression of the disease can vary and he is not able to give a timeline for the family. He talked with them about the possible use of medication that might help address memory loss issues (Aricept or Namenda). Dr. Gonzalez answered several questions the had sent regarding dementia. After Dr. Gonzalez left, this SW reviewed possible discharge options. Shorty asked if the family was legally bound to follow recommendation of physician. This SW explained that they were not legally bound but faced the risk of potential report to APS if living situation was not considered safe by law enforcement or possible law suit if pt. continued to drive and was involved in accident. This SW explained the recommendation of medical team is for family to consider AL with memory care support. Because the son mentioned possibility of hiring staff to supervise his father, information on community in-home resources was provided. Also provided was handouts on Alz. Assn., Dementia Global Rating Scale, and signs and symptoms of dementia. Shorty asked several questions regarding asset protection and this SW referred family to seek out an deputy attorney general who specializes in estate planning. Pt. does not have a Will or Trust. The sons are not on patient's checking account. The pt. joined the meeting and began asking about which son was going to take him home. He continues to verbalize belief that "someone" is lying to him and he accused sons of trying to steal his money. Shorty got upset and left the meeting. Pt. asked what he had to do to leave. He was advised it is important that he take the medications as prescribed. He reluctantly agreed to take medications for tonight and will stay one more day. The sons are going to discuss their discharge options. They were advised that Marivel KNIGHT) would be contacting Shorty for directions on discharge planning.
[2016-10-27] MEDS ORDERED: RISPERIDONE 0.5 MG TABLET PO SCH (17:30)
--- NOTE | 2016-10-27 18:50 | NUR ---
Shift Summary and Sleep Time Pt sitting in room and requests sign on room door to indicate to knock before entering. Pt continued flat, depressed and guarded with interactions. Tends to isolate, no anger expressed at this time, but quick to yell when frustrated or refusing care, or refusing meds today. No sleep time since awake this a.m.
[2016-10-27 20:49] VITALS: BP 153/73; PULSE 58; RESP 18; TEMP 98.2; O2SAT 99
[2016-10-27 21:46] VITALS: RESP 18
--- NOTE | 2016-10-28 01:43 | NUR ---
Chart Check 24 hour chart check completed
--- NOTE | 2016-10-28 01:44 | NUR ---
Bed time Pt went to bed at 2100 and was sleeping at 2145. No sleep during day hours. Currently sleeping. Will continue to monitor
--- NOTE | 2016-10-28 01:51 | NUR ---
Mid shift status Pt was lying down in his room at beginning of shift. Knocked on pt door to check if pt would be cooperative with assessment and vitals. Pt was hesitant at first, saying "they already did this earlier in the day". It was explained that we have to do the same thing on our shift as well. Pt agreed to allow. Stated "I don't like it but I'll let you". Once vitals obtained and assessment complete, I thanked pt for allowing us to care for him. Pt replied "you're not welcome! but okay". After that he hollered at staff "now get the hell out of here!". TRAINER explained to pt he needed to get a shower. Pt was angry and yelling, then agreed to get in shower if "you all get the hell out of here, I can do it myself!". Allowed pt to take his own shower, but pt did not wash his hair, only rinsing himself off. Went in to check on him and he yelled more, "did you see what the door says?!" Staff closed his door and knocked and pt replied "I'm busy now, go away!". Pt did allow staff to take his clothes to be laundered as they were very odorous. Pt went to bed at 2100 and was asleep at 2145. Pt has not displayed any physical aggression. No PRNs given. Currently sleeping. Bed rails up x 2 and alarm on. Will continue to monitor
--- NOTE | 2016-10-28 05:54 | NUR ---
Summary Pt has slept since 2144. Pt is alert to person. Up SBA. Pt has been resistive with cares and does not want staff to enter his room without knocking first. Pt has yelled and screamed and cursed at staff this shift to get out of his room. No display of physical aggression noted. No PRNs given. Currently sleeping. Will continue to monitor
[2016-10-28] MEDS: TRIAMTERENE/HCTZ 37.5mg/25mg TABLET PO SCH (08:10)
[2016-10-28] MEDS: ATENOLOL 25 MG TABLET PO SCH (08:10)
[2016-10-28] MEDS: FINASTERIDE 5 MG TABLET PO SCH (08:10)
[2016-10-28] MEDS: AMLODIPINE 10 MG TABLET PO SCH (08:10)
[2016-10-28] MEDS: CYANOCOBALAMIN (B-12) 500mcg TABLET PO SCH (08:10)
[2016-10-28] MEDS: DIVALPROEX SPRINKLE 125 MG CAPSULE PO SCH ×2 (08:16→17:34)
[2016-10-28 08:36] VITALS: BP 141/76; PULSE 67; RESP 24; TEMP 98.2; O2SAT 96
--- NOTE | 2016-10-28 10:45 | NUR ---
POT WASHER--AM GROUP Pt. was present and actively engaged in psychoeducational group facilitated by [facility]. Topic was on favorite memories of our mothers and Mother's Day memories. Pt. was alert, Ox1, with dysthymic mood. He was alert and attentive as others spoke. He did attempt to answer all questions asked. He became almost tearful as he shared thoughts about his mother and how thoughtful she was. Expanded conversation to include influence of spiritual kiran as a means of support and strength when facing challenges in life. Pt. agreed that prayer was an important aspect of his life and his involvement in his moravian and community was acknowledged. Pt. remained calm and slightly tearful one time during the group. Ended group by playing Hymns. Pt. remained engaged and calm throughout entire group.
[2016-10-28 16:52] VITALS: BP 133/67; PULSE 57; RESP 20; TEMP 97.6; O2SAT 93
[2016-10-28] MEDS: RISPERIDONE 0.5 MG PO SCH (17:34)
--- NOTE | 2016-10-28 17:55 | NUR ---
summary pt woke this am at 0800. slept for a total of 10.25hrs. has been pleasant and cooperative all shift. allowed staff to obtain vitals x2. pt has been compliant with all medication this shift. 2100 depakote was given early due to previous behaviors when staff tried to give at 2100. pt has a fairly good appetite. only ate bites for supper. pt visits with another male pt and is appropriate. participated in group this am. has had no verbal aggression this shift. pt has not slept since waking this am. pt has sat in day room with staff all shift.
[2016-10-28 20:12] VITALS: BP 137/71; PULSE 61; RESP 20; TEMP 97.8; O2SAT 97
--- NOTE | 2016-10-28 21:50 | GENPN ---
Chela Subjective Date DATE: 10/28/16 TIME: 21:41 Subjective/Severity of Illness Medications Current Medications Medications (Trade) Dose Ordered Sig/Giancarlo Start Time Stop Time Status Last Admin Dose Admin Amlodipine Besylate (Norvasc) 10 mg DAILY 10/23/16 09:00 10/24/16 09:01 DC 10/24/16 08:06 10 MG Finasteride (Proscar) 5 mg DAILY 10/23/16 09:00 10/28/16 08:10 5 MG Multivitamins/ Minerals (Vision) 1 tab DAILY 10/23/16 09:00 Future Hold 10/25/16 08:40 1 TAB Triamterene/HCTZ (Maxzide-25) 1 tab DAILY 10/23/16 09:00 10/24/16 09:01 DC 10/24/16 08:05 1 TAB Miscellaneous Medication (May use PRN orders) 1 PRN PRN 10/22/16 16:00 Haloperidol (Haldol) 0.5 mg Q6H PRN 10/22/16 16:00 10/23/16 16:29 DC Lorazepam (Ativan) 0.5 mg Q6H PRN 10/22/16 16:00 10/23/16 16:29 DC Lorazepam (Ativan) 0.5 mg Q6H PRN 10/22/16 16:00 10/23/16 16:29 DC Haloperidol Lactate (Haldol 5 Mg/ml Inj) 0.5 mg Q6H PRN 10/22/16 16:00 10/23/16 16:29 DC Lorazepam (Ativan Intensol) 0.5 mg Q6H PRN 10/23/16 04:00 10/23/16 16:29 DC Haloperidol (Haldol Liquid) 0.5 mg Q6H PRN 10/23/16 04:00 10/23/16 16:29 DC Amlodipine Besylate (Norvasc) 10 mg DAILY 10/25/16 09:00 10/28/16 08:10 10 MG Triamterene/HCTZ (Maxzide-25) 1 tab DAILY 10/25/16 09:00 10/28/16 08:10 1 TAB Atenolol (TENORMIN 25 mg) 25 mg DAILY 10/24/16 09:00 10/28/16 08:10 25 MG Haloperidol (Haldol) 1 mg Q6H PRN 10/23/16 22:00 Haloperidol Lactate (Haldol 5 Mg/ml Inj) 1 mg Q6H PRN 10/23/16 22:00 Haloperidol (Haldol Liquid) 1 mg Q6H PRN 10/23/16 22:00 Lorazepam (Ativan) 1 mg Q6H PRN 10/23/16 22:00 Lorazepam (Ativan) 1 mg Q6H PRN 10/23/16 22:00 Lorazepam (Ativan Intensol) 1 mg Q6H PRN 10/23/16 22:00 10/24/16 17:16 1 MG Risperidone (Risperdal) 0.5 mg HS 10/24/16 21:00 10/27/16 10:32 DC Cyanocobalamin (Vit. B-12) 2,000 mcg DAILY 10/26/16 09:00 10/28/16 08:10 2,000 MCG Magnesium Hydroxide (Mom) 30 ml DAILY PRN 10/26/16 15:45 10/26/16 15:38 30 ML Risperidone (Risperdal) 0.5 mg 1730 10/27/16 17:30 10/27/16 17:30 DC Risperidone (Risperdal M) 0.5 mg 1730 10/27/16 17:30 10/28/16 17:34 0.5 MG Divalproex Sodium (Depakote Sprinkle) 125 mg BID 10/28/16 09:00 10/28/16 18:39 DC 10/28/16 17:34 125 MG Divalproex Sodium (Depakote Sprinkle) 125 mg [id number] 10/29/16 08:00 Subjective Patient is an 86-year-old retired male who was admitted to [facility] on 10/22/16 due to increased confusion, paranoia and impulsivity reported by family. Patient seen and chart reviewed. Patient is in day-room with peers on approach and appears to be more friendly today and less irritated. Staff reports that patient has been more compliant with his medications. He was said to have participated in unit group activities earlier today and seems to have enjoyed. Had discussed starting patient on Memantine with family yesterday and they gave verbal consent. He denies SI, HI, AVH. Good appetite. Sleep:10 hours. SLUMS on admission: 13 Time of Service: 18:30 Start Time: 18:30 Stop Time: 18:45 Care >50% of this visit spent in counseling/coordination care. Generations Exam Vitals Vital Signs Date Time Temp Pulse Resp B/P Pulse Ox O2 Delivery O2 Flow Rate FiO2 10/28/16 20:12 97.8 61 20 137/71 97 Room Air Physical examination performed by the hospitalist. Height (Feet): 5 Height (Inches): 9.00 Mental Status Exam Muscle Strength/Tone: Normal Dressing: Casual Grooming: Fair Attitude: Cooperative Motor Activity: Normal Eye Contact: Fair Speech: Normal Volume: Normal Rhythm: Appropriate Rhythm Sensory: Alert Orientation: Disoriented to place, Disoriented to situation, Oriented to person Mood: Irritable (less so than yesterday) Affect: Exaggerated Rate of Thoughts: Appropriate Rate Thought Organization: Disorganized Associations: Illogical Abstract Reasoning: Impaired, concrete Computation: Poor Computation Thought Content: Paranoia Perception/Psychotic: Psychotic Attention Span/Concentration: Short Span Language: Naming Impaired Fund of Knowledge: Poor fund of knowledge Memory: Poor-immediate, Poor-recent Suicidal Ideation: None Homicidal Ideation: None Insight: Poor Judgment: Poor Impulse Control: Poor Assessment and Plan (1) Major neurocognitive disorder Assessment: with behavioral disturbance 10/24/16: After discussion of risks/benefits, son/DPGUSTAVO Kwok consented to trial of Risperdal. Will start Risperdal 0.5mg PO q HS tonight. KATHLEEN/RIPPA ordered. 10/25/16: Cont current medications. Awaiting on Kathleen/Rippa 10/26/16: Discuss starting Depakote sprinkles with patient's DPOA 10/27/16: Change Risperidone to M-tab formulation. Consider adding Depakote after discussion with family. Depakote Sprinkles 125mg BID. Kathleen shows that patient requires 24 h sup. 10/28/16: Change Depakote to 0900 and 1730. Start Memantine 5mg daily. (2) HTN (hypertension) Qualifiers: Qualified Codes: I10 - Essential (primary) hypertension CECILIA HOPKINS MD October 28, 2016 21:46
--- NOTE | 2016-10-29 00:37 | NUR ---
Status/Bedtime Pt. is in bed at 2245. Pt. is resting quietly. Pt. is sitting in the dayroom on approach. Pt. is pleasant with vitals and assessments. Pt. denies pain. Pt. smiles and laughs with staff. Pt. expresses a desire to go home and wants to know when he can leave. Pt. is told the DrAleks makes that decision and he can talk to the DrAleks tomorrow about his concerns. . Pt. loudly talks about 4 women coming in his room and he didn't know they were there and it upset him. Pt. is calmed when it is explained that staff will knock on his door and wait for him to say it is okay to come in. Pt. uses his call light and when staff responded to the call light first knocked and walked into pt. room, pt. says, "I didn't hear you knock, get out" very loudly. Staff leaves his room and pt. calms. Pt. presses his call light again within a few minutes, staff knocks and waits for pt. to say it is okay to come in and pt. is more agreeable. Pt. is resting in bed at this time.
--- NOTE | 2016-10-29 05:32 | NUR ---
Summary/Sleep Pt. has been in bed since 2244 and asleep since 14. Pt. is pleasant and cooperative with vitals and assessment. Pt. smiles with staff. Pt. affect much brighter and mood has improved from previous encounters. Pt. did have two angry outbursts this shift. Once in the dayroom when he remembered staff came into his room without knocking several days ago and he didn't know they were there. Pt. is calmed with reassurance staff would knock before entering. The second time was when he used his call light, staff knocked once and entered his room, but he did not say they could come in yet and yelled at them to leave. No physical aggression or threats made. No prn meds given. Pt. is resting in bed at this time.
--- NOTE | 2016-10-29 05:54 | NUR ---
Chart Check 24 hour chart check completed
[2016-10-29 08:11] VITALS: BP 133/77; PULSE 62; RESP 16; TEMP 98.4; O2SAT 96
[2016-10-29] MEDS: ATENOLOL 25 MG TABLET PO SCH (08:14)
[2016-10-29] MEDS: AMLODIPINE 10 MG TABLET PO SCH (08:14)
[2016-10-29] MEDS: CYANOCOBALAMIN (B-12) 500mcg TABLET PO SCH (08:14)
[2016-10-29] MEDS: TRIAMTERENE/HCTZ 37.5mg/25mg TABLET PO SCH (08:15)
[2016-10-29] MEDS: MEMANTINE 5 MG TABLET PO SCH (08:29)
[2016-10-29] MEDS: DIVALPROEX SPRINKLE 125 MG CAPSULE PO SCH ×2 (08:29→16:45)
[2016-10-29] MEDS: FINASTERIDE 5 MG TABLET PO SCH (08:55)
[2016-10-29 09:54] VITALS: RESP 18
--- NOTE | 2016-10-29 11:05 | NUR ---
HEAD SWAMPER--AM GROUP Pt. was present and participated in parts of the psychoeducational group facilitated by [facility]. Began group by talking about [place] and traditions of the celebration. Pt. was not able to identify reason for the celebration. He frequently sat in recliner with his eyes closed. He would respond to his name and he attempted to answer a few of the questions asked of him. Played different kinds of music from different countries and patient was able to identify one of the countries the music represented. Ended group by listening to special requests from patients. Pt. sat in recliner for the entire group. He remained calm with dysthymic.
--- NOTE | 2016-10-29 11:42 | NUR ---
DEVAN HARTMAN LVM FOR BAUDILIO TO DISCUSS D/C PLAN FOR PT. CM PROVIDED CONTACT INFORMATION.
--- NOTE | 2016-10-29 11:52 | NUR ---
SLEEP NOTE Pt. has been in bed since 2244 and asleep since 14. He woke a at 0800. Total sleep time of 7hr 45min.
--- NOTE | 2016-10-29 14:27 | NUR ---
Status Pt sitting in day room or bedroom most of the day. Pt took medication without difficulty. He was pleasant and approachable this TOD. He does request that the nurse knocks before entering his rm. Pt was not aggressive towards myself or any other staff today. He was A/Ox3 and following all commands. No complaints of pain. Vss. Pt participated in group activities this am. Pt is concerned about going home today. States Dr said he would be going home today. pt is anxiously awaiting the doctors arrival. Pt did all cares this AM including shower, without difficulty. All questions and concerns answered. All fall precautions in place. Will continue to monitor.
--- NOTE | 2016-10-29 14:59 | NUR ---
SAP HANA ARCHITECT--PM GROUP Pt. was in his room resting and did not participate in psychoeducational group facilitated by [facility].
--- NOTE | 2016-10-29 15:08 | PNPDOC ---
Subjective Date DATE: 10/29/16 TIME: 15:03 Subjective Mele is seen today in follow up while sitting in his room enjoying the sun while looking out the window. He states he has been working on the wheel of his chair, however cannot get it to move. He otherwise denies having any shortness of breath or pain. He is wearing his heavy winter coat while sitting in the sun. BP 133/77. Objective Vital Signs Vital signs Vital Signs Date Time Temp Pulse Resp B/P Pulse Ox O2 Delivery O2 Flow Rate FiO2 10/29/16 09:54 18 10/29/16 08:11 98.4 62 133/77 96 Room Air Height (Feet): 5 Height (Inches): 9.00 Weight (Kilograms): 85.500 General General Appearance: Alert, Confused, Cooperative, No Acute Distress Eyes (Brief) Eyes: FOUND: EOMI ENMT (Brief) ENMT: FOUND: mucosa moist, normal dentition, NOT FOUND: pharnyx erythema Neck (Brief) Neck: FOUND: midline, NOT FOUND: adenopathy, carotid bruits, tracheal deviation Respiratory (Brief) Respiratory: FOUND: clear all cole, equal bilaterally, NOT FOUND: wheezes Cardiovascular (Brief) Cardiac: FOUND: regular rate, regular rhythm, NOT FOUND: murmur, pedal edema Capillary Refill: <2 sec Abdomen (Brief) Abdominal: FOUND: BS normo active x4, soft, NOT FOUND: distended, tender Lymphatic (Brief) Lymphatic: NOT FOUND: adenopathy Musculoskeletal (Brief) Musculoskeletal: NOT FOUND: tenderness Integumentary (Brief) Integumentary: FOUND: dry, pink, warm Neurologic (Brief) Neurological: FOUND: cranial 2-12 intact Psychiatric (Brief) Psychiatric: FOUND: alert, attentive, normal affect Comments Pleasantly confused Sepsis Diagnostic Criteria Sepsis Confirmed/Suspected Infection: No Assessment & Plan Problems: (1) Vitamin B12 deficiency Status: Acute (2) Major neurocognitive disorder (3) Prostatism Status: Chronic (4) HTN (hypertension) Status: Chronic Qualifiers: Hypertension type: essential hypertension Qualified Codes: I10 - Essential (primary) hypertension (5) Dehydration with hypernatremia Status: Acute (6) Hypercalcemia (7) Elevated parathyroid hormone Assessment Plan/Intensity of Service 10/29/16 Did review hyperparathyroidism, elevated calcium and PTH levels. Dr. Alvarez is out of town until 11/01. If patient is still at [facility] could contact him for consultation. Also encourage patient to follow up outpatient for further evaluation Otherwise is medically stable BP currently is well controlled on Norvasc, atenolol and Maxzide Continue with psychiatric care as per Dr Gonzalez Code Status Do Not Resuscitate Hospital Course Summary Disclaimer The hospital course summary below is not to be considered part of the above Progress Note. Hospital Course Summary 10/22/16 Agree with admission to [facility]. At the time of evaluation, labs had not been yet obtained. We'll await results of workup to make further recommendations. Patient does have a history of hypertension, continue Maxzide and Norvasc. He has trace edema to bilateral lower extremities. Also history of prostatism and takes Proscar. Provide safe and supportive environment. 10/23/16- Patient continues to have aggressive behavior. Maintain safe environment- meds per attending. BP remains fairly elevated- add Atenolol. We may need to DC Maxzide if he remains clinically dry on labs Continue Norvasc, Proscar for BPH. Lab recheck pending in AM. 10/25/16 Blood pressure is doing better since atenolol was added. Sodium has improved to 144, however, slight increase noted in renal functions. May need to hold off on Maxzide if this continues. However, patient has been eating and drinking well. Hypercalcemia - check phos and PTH. Will repeat labs tomorrow morning. Psychiatric progress notes reviewed: Started Risperdal 0.5mg PO HS. ARACELI/RIPPA ordered 10/27/16 Serum calcium remains elevated, as well as PTH. Patient appears to be asymptomatic. May be a primary hyperparathyroidism versus malignant Attempted to contact Dr Alvarez however he is out of town until wednesday 11/01. Will likely need further outpatinet follow up Otherwise is medically stable BP is mildly elevated Continue with psychiatric care as per Dr Gonzalez 10/29/16 Did review hyperparathyroidism, elevated calcium and PTH levels. Dr. Alvarez is out of town until 11/01. If patient is still at [facility] could contact him for consultation. Also encourage patient to follow up outpatient for further evaluation Otherwise is medically stable BP currently is well controlled on Norvasc, atenolol and Maxzide Continue with psychiatric care as per NABOR Kohli APRN October 29, 2016 15:06
[2016-10-29 16:00] VITALS: BP 132/78; PULSE 66; RESP 16; TEMP 98.8; O2SAT 93
[2016-10-29] MEDS: RISPERIDONE 0.5 MG PO SCH (16:39)
--- NOTE | 2016-10-29 16:56 | NUR ---
Summary Pt more agitated this pm. pt had a angry outburst when another pt entered his room. pt also angry when he tried to make a call to his son and there was no answer. pt still states he is unaware why he is here. Pt very agitated that he hasn't gone home. vss. No complaints of pain at this time. pt is still taking meds without difficulty. pt took 1 nap 1hr in length. Will continue to monitor until care is surrendered to the on coming nurse.
--- NOTE | 2016-10-29 17:01 | NUR ---
PLISSE MACHINE OPERATOR--[place] PLAN LSW made phone call to pt's son/DPOA-HC (Shorty). Left message asking him to call regarding proposed [place] plan.
--- NOTE | 2016-10-29 17:18 | GENPN ---
Chela Subjective Date DATE: 10/29/16 TIME: 17:15 Subjective/Severity of Illness Medications Current Medications Medications (Trade) Dose Ordered Sig/Giancarlo Start Time Stop Time Status Last Admin Dose Admin Amlodipine Besylate (Norvasc) 10 mg DAILY 10/23/16 09:00 10/24/16 09:01 DC 10/24/16 08:06 10 MG Finasteride (Proscar) 5 mg DAILY 10/23/16 09:00 10/29/16 08:55 5 MG Multivitamins/ Minerals (Vision) 1 tab DAILY 10/23/16 09:00 Future Hold 10/25/16 08:40 1 TAB Triamterene/HCTZ (Maxzide-25) 1 tab DAILY 10/23/16 09:00 10/24/16 09:01 DC 10/24/16 08:05 1 TAB Miscellaneous Medication (May use PRN orders) 1 PRN PRN 10/22/16 16:00 Haloperidol (Haldol) 0.5 mg Q6H PRN 10/22/16 16:00 10/23/16 16:29 DC Lorazepam (Ativan) 0.5 mg Q6H PRN 10/22/16 16:00 10/23/16 16:29 DC Lorazepam (Ativan) 0.5 mg Q6H PRN 10/22/16 16:00 10/23/16 16:29 DC Haloperidol Lactate (Haldol 5 Mg/ml Inj) 0.5 mg Q6H PRN 10/22/16 16:00 10/23/16 16:29 DC Lorazepam (Ativan Intensol) 0.5 mg Q6H PRN 10/23/16 04:00 10/23/16 16:29 DC Haloperidol (Haldol Liquid) 0.5 mg Q6H PRN 10/23/16 04:00 10/23/16 16:29 DC Amlodipine Besylate (Norvasc) 10 mg DAILY 10/25/16 09:00 10/29/16 08:14 10 MG Triamterene/HCTZ (Maxzide-25) 1 tab DAILY 10/25/16 09:00 10/29/16 08:15 1 TAB Atenolol (TENORMIN 25 mg) 25 mg DAILY 10/24/16 09:00 10/29/16 08:14 25 MG Haloperidol (Haldol) 1 mg Q6H PRN 10/23/16 22:00 Haloperidol Lactate (Haldol 5 Mg/ml Inj) 1 mg Q6H PRN 10/23/16 22:00 Haloperidol (Haldol Liquid) 1 mg Q6H PRN 10/23/16 22:00 Lorazepam (Ativan) 1 mg Q6H PRN 10/23/16 22:00 Lorazepam (Ativan) 1 mg Q6H PRN 10/23/16 22:00 Lorazepam (Ativan Intensol) 1 mg Q6H PRN 10/23/16 22:00 10/24/16 17:16 1 MG Risperidone (Risperdal) 0.5 mg HS 10/24/16 21:00 10/27/16 10:32 DC Cyanocobalamin (Vit. B-12) 2,000 mcg DAILY 10/26/16 09:00 10/29/16 08:14 2,000 MCG Magnesium Hydroxide (Mom) 30 ml DAILY PRN 10/26/16 15:45 10/26/16 15:38 30 ML Risperidone (Risperdal) 0.5 mg 1730 10/27/16 17:30 10/27/16 17:30 DC Risperidone (Risperdal M) 0.5 mg 1730 10/27/16 17:30 10/29/16 16:39 0.5 MG Divalproex Sodium (Depakote Sprinkle) 125 mg BID 10/28/16 09:00 10/28/16 18:39 DC 10/28/16 17:34 125 MG Divalproex Sodium (Depakote Sprinkle) 125 mg 08,1730 10/29/16 08:00 10/29/16 16:45 125 MG Memantine (Namenda) 5 mg DAILY 10/29/16 09:00 10/29/16 08:29 5 MG Subjective Pt seen and chart examined. Nursing reports pt slept well and has a good appetite. Pt remains irritable and demanding at times but is redirectable. Pt has been compliant with meds. On face to face the pt is irritable. He has poor insight and states he does not need to be here. He reports his mood is stable and denies psychotic symptoms. States "I dont want to take genia many meds " but stated he would take them tonight. Denies any issues with his meds. Time of Service: 16:45 Start Time: 16:45 Stop Time: 17:00 Care >50% of this visit spent in counseling/coordination care. Generations Exam Vitals Vital Signs Date Time Temp Pulse Resp B/P Pulse Ox O2 Delivery O2 Flow Rate FiO2 10/29/16 16:00 98.8 66 16 132/78 93 Room Air Physical examination performed by the hospitalist. Height (Feet): 5 Height (Inches): 9.00 Mental Status Exam Muscle Strength/Tone: Normal Dressing: Casual Grooming: Good Attitude: Guarded Motor Activity: Normal Eye Contact: Good Speech: Normal Volume: Normal Rhythm: Appropriate Rhythm Sensory: Alert Orientation: Oriented to person Mood: Irritable Affect: Congruent Rate of Thoughts: Delayed Thought Organization: [place] Associations: Intact Abstract Reasoning: Impaired, concrete Thought Content: Normal Perception/Psychotic: Perception Normal Attention Span/Concentration: Short Span Fund of Knowledge: Poor fund of knowledge Memory: Poor-immediate, Poor-recent Suicidal Ideation: None Homicidal Ideation: None Insight: Poor Judgment: Poor Impulse Control: Poor Assessment and Plan (1) Major neurocognitive disorder Assessment: with behavioral disturbance 10/24/16: After discussion of risks/benefits, son/DPOA Sundar consented to trial of Risperdal. Will start Risperdal 0.5mg PO q HS tonight. KATHLEEN/RIPPA ordered. 10/25/16: Cont current medications. Awaiting on Kathleen/Rippa 10/26/16: Discuss starting Depakote sprinkles with patient's DPOA 10/27/16: Change Risperidone to M-tab formulation. Consider adding Depakote after discussion with family. Depakote Sprinkles 125mg BID. Kathleen shows that patient requires 24 h sup. 10/28/16: Change Depakote to 0900 and 1730. Start Memantine 5mg daily. 10/29/16 Continue current care (2) HTN (hypertension) Qualifiers: Qualified Codes: I10 - Essential (primary) hypertension Cont. current psych. meds KENDRICK COX MD October 29, 2016 17:18
[2016-10-29 21:18] VITALS: BP 134/74; PULSE 65; RESP 18; TEMP 98.2; O2SAT 93
[2016-10-29 21:49] VITALS: PULSE 66; RESP 16
--- NOTE | 2016-10-30 00:53 | NUR ---
Mid shift status Pt was in his room at beginning of shift. While this nurse was in the room across [place] from his, pt came out into [place], talking loudly asking if Sundar was here and "where is Sundar?" I went to check on pt at that time. Pt was confused at this time and was reassured he is currently in hospital. Pt asked "I'm in the hospital?". Pt then walked down toward the day room. Asked if pt would like to sit and watch tv and pt refused. Pt then went and stood next to a female pt who was sitting at dining table. LEAD MECHANICAL ENGINEER asked pt to sit in chair so she could obtain his vitals. Pt stated they had already done them earlier. Explained to pt we have to do them on our shift now. Pt was cooperative with vitals and assessment at that time. Shortly after, pt walked back to his room and closed his door. Pt did not yell at any time on this shift. Pt alert x 2. Up SBA and ambulates on own with steady gait. No display of verbal or physical aggression this shift. Currently sleeping. Bed rails up x 2 and alarm on. Will continue to monitor
--- NOTE | 2016-10-30 01:07 | NUR ---
Chart Check 24 hour chart check completed
--- NOTE | 2016-10-30 01:07 | NUR ---
Bed time Pt went to bed at 2014 and was sleeping at 2100. No sleep during day hours. Currently sleeping. Will continue to monitor
--- NOTE | 2016-10-30 05:40 | NUR ---
Summary Pt has been sleeping since 2099, up once to void. Pt alert to person. Up SBA. Steady gait. Pt has not had any yelling episodes toward staff this shift. Cooperative with vitals and assessment. Allowed his clothes to be laundered. No displays of verbal or physical aggression this shift. No PRNs given. Pt has isolated in his room this shift. Currently sleeping. Bed rails up x 2 and alarm on. Will continue to monitor
[2016-10-30 08:26] VITALS: BP 130/81; PULSE 65; RESP 16; TEMP 98.4; O2SAT 96
[2016-10-30] MEDS: CYANOCOBALAMIN (B-12) 500mcg TABLET PO SCH (08:46)
[2016-10-30] MEDS: TRIAMTERENE/HCTZ 37.5mg/25mg TABLET PO SCH (08:46)
[2016-10-30] MEDS: ATENOLOL 25 MG TABLET PO SCH (08:47)
[2016-10-30] MEDS: DIVALPROEX SPRINKLE 125 MG CAPSULE PO SCH ×2 (08:47→17:32)
[2016-10-30] MEDS: FINASTERIDE 5 MG TABLET PO SCH (08:47)
[2016-10-30] MEDS: AMLODIPINE 10 MG TABLET PO SCH (08:47)
[2016-10-30] MEDS: MEMANTINE 5 MG TABLET PO SCH (08:47)
--- NOTE | 2016-10-30 09:01 | NUR ---
Status/Sleep 9.75 According to 15 minute observation sheet, pt in bed at 2100 up at 745, slept 9.75. Pt is cooperative with assessment this morning. Able to make needs know, and do cares independently. Pt ate 100% of breakfast, sitting at dinning room table watching traffic at this time. Denies pain. Takes Meds whole after the nurse giving Meds explained what they were, pt did say that the Vit. B pill was different than what he takes, but did take it.
--- NOTE | 2016-10-30 11:16 | GENPN ---
Chela Subjective Date DATE: 10/30/16 TIME: 11:13 Subjective/Severity of Illness Medications Current Medications Medications (Trade) Dose Ordered Sig/Giancarlo Start Time Stop Time Status Last Admin Dose Admin Amlodipine Besylate (Norvasc) 10 mg DAILY 10/23/16 09:00 10/24/16 09:01 DC 10/24/16 08:06 10 MG Finasteride (Proscar) 5 mg DAILY 10/23/16 09:00 10/30/16 08:47 5 MG Multivitamins/ Minerals (Vision) 1 tab DAILY 10/23/16 09:00 Future Hold 10/25/16 08:40 1 TAB Triamterene/HCTZ (Maxzide-25) 1 tab DAILY 10/23/16 09:00 10/24/16 09:01 DC 10/24/16 08:05 1 TAB Miscellaneous Medication (May use PRN orders) 1 PRN PRN 10/22/16 16:00 Haloperidol (Haldol) 0.5 mg Q6H PRN 10/22/16 16:00 10/23/16 16:29 DC Lorazepam (Ativan) 0.5 mg Q6H PRN 10/22/16 16:00 10/23/16 16:29 DC Lorazepam (Ativan) 0.5 mg Q6H PRN 10/22/16 16:00 10/23/16 16:29 DC Haloperidol Lactate (Haldol 5 Mg/ml Inj) 0.5 mg Q6H PRN 10/22/16 16:00 10/23/16 16:29 DC Lorazepam (Ativan Intensol) 0.5 mg Q6H PRN 10/23/16 04:00 10/23/16 16:29 DC Haloperidol (Haldol Liquid) 0.5 mg Q6H PRN 10/23/16 04:00 10/23/16 16:29 DC Amlodipine Besylate (Norvasc) 10 mg DAILY 10/25/16 09:00 10/30/16 08:47 10 MG Triamterene/HCTZ (Maxzide-25) 1 tab DAILY 10/25/16 09:00 10/30/16 08:46 1 TAB Atenolol (TENORMIN 25 mg) 25 mg DAILY 10/24/16 09:00 10/30/16 08:47 25 MG Haloperidol (Haldol) 1 mg Q6H PRN 10/23/16 22:00 Haloperidol Lactate (Haldol 5 Mg/ml Inj) 1 mg Q6H PRN 10/23/16 22:00 Haloperidol (Haldol Liquid) 1 mg Q6H PRN 10/23/16 22:00 Lorazepam (Ativan) 1 mg Q6H PRN 10/23/16 22:00 Lorazepam (Ativan) 1 mg Q6H PRN 10/23/16 22:00 Lorazepam (Ativan Intensol) 1 mg Q6H PRN 10/23/16 22:00 10/24/16 17:16 1 MG Risperidone (Risperdal) 0.5 mg HS 10/24/16 21:00 10/27/16 10:32 DC Cyanocobalamin (Vit. B-12) 2,000 mcg DAILY 10/26/16 09:00 10/30/16 08:46 2,000 MCG Magnesium Hydroxide (Mom) 30 ml DAILY PRN 10/26/16 15:45 10/26/16 15:38 30 ML Risperidone (Risperdal) 0.5 mg 1730 10/27/16 17:30 10/27/16 17:30 DC Risperidone (Risperdal M) 0.5 mg 1730 10/27/16 17:30 10/29/16 16:39 0.5 MG Divalproex Sodium (Depakote Sprinkle) 125 mg BID 10/28/16 09:00 10/28/16 18:39 DC 10/28/16 17:34 125 MG Divalproex Sodium (Depakote Sprinkle) 125 mg 08,1730 10/29/16 08:00 10/30/16 08:47 125 MG Memantine (Namenda) 5 mg DAILY 10/29/16 09:00 10/30/16 08:47 5 MG Subjective Pt seen and chart examined. Nursing reports pt slept well and has a good appetite. Pt remains irritable at times but is improving. On face to face the pt states he is doing well. He is guarded and only oriented to self. He voices no concerns. Tolerating meds Time of Service: 10:15 Start Time: 10:15 Stop Time: 10:30 Care >50% of this visit spent in counseling/coordination care. Generations Exam Vitals Vital Signs Date Time Temp Pulse Resp B/P Pulse Ox O2 Delivery O2 Flow Rate FiO2 10/30/16 08:26 98.4 65 16 130/81 96 Room Air Physical examination performed by the hospitalist. Height (Feet): 5 Height (Inches): 9.00 Mental Status Exam Muscle Strength/Tone: Normal Dressing: Casual Grooming: Good Attitude: Guarded Motor Activity: Retardation Eye Contact: Fair Speech: Slowed Volume: Normal Rhythm: Appropriate Rhythm Sensory: Alert Orientation: Oriented to person Mood: Irritable Affect: Congruent Rate of Thoughts: Delayed Thought Organization: [place] Associations: Illogical Abstract Reasoning: Impaired, concrete Thought Content: Normal Perception/Psychotic: Perception Normal Attention Span/Concentration: Inattentive Fund of Knowledge: Poor fund of knowledge Memory: Poor-immediate, Poor-recent Suicidal Ideation: None Homicidal Ideation: None Insight: Poor Judgment: Poor Impulse Control: Poor Assessment and Plan (1) Major neurocognitive disorder Assessment: with behavioral disturbance 10/24/16: After discussion of risks/benefits, son/DPOA Sundar consented to trial of Risperdal. Will start Risperdal 0.5mg PO q HS tonight. KATHLEEN/RIPPA ordered. 10/25/16: Cont current medications. Awaiting on Kathleen/Rippa 10/26/16: Discuss starting Depakote sprinkles with patient's DPOA 10/27/16: Change Risperidone to M-tab formulation. Consider adding Depakote after discussion with family. Depakote Sprinkles 125mg BID. Kathleen shows that patient requires 24 h sup. 10/28/16: Change Depakote to 0900 and 1730. Start Memantine 5mg daily. 10/29/16 Continue current care 10/30/16 Continue current care (2) HTN (hypertension) Qualifiers: Qualified Codes: I10 - Essential (primary) hypertension Cont. current psych. meds KENDRICK COX MD October 30, 2016 11:16
[2016-10-30 16:39] VITALS: BP 126/69; PULSE 68; RESP 16; TEMP 98.8; O2SAT 95
[2016-10-30] MEDS: RISPERIDONE 0.5 MG PO SCH (17:32)
--- NOTE | 2016-10-30 19:54 | NUR ---
Status Pt has been cooperative this shift. Pt worked on a crossword puzzle for a while today. When pt is in room he likes his door closed. Pt wants staff to knock on door and wait for him to say it is okay to come in before entering. Pt ate most of meals today, pt took Depakote at supper without difficulty. Pt put his Remeron in is fruit cup, this nurse gave it to him with a spoonful of fruit juice and pt took it. Pt denies pain. No behaviors or aggression noted.
[2016-10-30 21:17] VITALS: PULSE 71; RESP 16
[2016-10-30 21:38] VITALS: BP 121/77; PULSE 71; RESP 16; TEMP 99.6; O2SAT 93
--- NOTE | 2016-10-31 00:38 | NUR ---
Mid shift status Pt was sitting in his room at beginning of shift. Pt allowed his vitals and assessment to be completed, but he made it known he did not like it. Pt alert to person. Up SBA, ambulating on own without assistive device. Pt has not displayed any verbal or physical aggression. When this RN went to check on him later in the shift, pt was reclining in his recliner so I asked if he would like to transfer to his bed where it is more comfortable. Pt replied back in snappy voice "this is comfortable enough!". He made comment that the recliner doesn't go down and he stated he is the type of samaria who will tell someone when something isn't right. I told him I appreciate that and if I could look at the recliner to see what was wrong, but pt interrupted me "just leave it and don't come back into my room until morning!". I then told pt to use call light if he needed anything. Pt told this nurse to shut his door. Have checked on him periodically but pt has yelled for staff to leave him alone. Currently sleeping in recliner. Will continue to monitor
--- NOTE | 2016-10-31 01:44 | NUR ---
Bed time Pt has been in his recliner laying down. He fell asleep in recliner at 2215 and has been sleeping there since. Currently sleeping. Will continue to monitor
--- NOTE | 2016-10-31 01:46 | NUR ---
Chart Check 24 hour chart check completed
--- NOTE | 2016-10-31 06:12 | NUR ---
Summary Pt has been sleeping since 2214. Pt is alert to person. Up SBA. Pt has not displayed any verbal or physical aggression. No PRNs given. Pt demanded staff to not enter his room until morning. Has yelled at staff for checking on him when doing 15 minute observations. Currently sleeping in recliner. Will continue to monitor
[2016-10-31] MEDS: ATENOLOL 25 MG TABLET PO SCH (08:20)
[2016-10-31] MEDS: DIVALPROEX SPRINKLE 125 MG CAPSULE PO SCH ×2 (08:20→16:58)
[2016-10-31] MEDS: MEMANTINE 5 MG TABLET PO SCH (08:20)
[2016-10-31] MEDS: AMLODIPINE 10 MG TABLET PO SCH (08:20)
[2016-10-31] MEDS: FINASTERIDE 5 MG TABLET PO SCH (08:20)
[2016-10-31] MEDS: CYANOCOBALAMIN (B-12) 500mcg TABLET PO SCH (08:21)
[2016-10-31 08:57] VITALS: BP 130/75; PULSE 63; RESP 18; TEMP 97.4; O2SAT 95
[2016-10-31 08:59] VITALS: PULSE 63; RESP 18
--- NOTE | 2016-10-31 09:32 | PNPDOC ---
Subjective Date DATE: 10/31/16 TIME: 09:24 Subjective Mr. Childress was seen in his room, getting ready for the day. He prefers to store to be closed. He has exhibited some irritation toward staff, and he seems to be most content and left alone. His biggest concern is that he doesn't know why he is still here. He denied any physical symptoms. Objective Vital Signs Vital signs Vital Signs Date Time Temp Pulse Resp B/P Pulse Ox O2 Delivery O2 Flow Rate FiO2 10/31/16 08:59 63 18 10/31/16 08:57 97.4 130/75 95 Room Air Height (Feet): 5 Height (Inches): 9.00 Weight (Kilograms): 85.900 General General Appearance: Alert, Well Nourished, Well Developed, No Acute Distress Eyes (Brief) Eyes: FOUND: PERRL, NOT FOUND: scleral icterus ENMT (Brief) ENMT: FOUND: mucosa moist, NOT FOUND: pharnyx erythema Respiratory (Brief) Respiratory: FOUND: clear all cole, equal bilaterally Cardiovascular (Brief) Cardiac: FOUND: regular rate, regular rhythm Abdomen (Brief) Abdominal: FOUND: BS normo active x4, soft, NOT FOUND: distended Extremities (Brief) Extremity : Extremity Finding: NOT FOUND: edema Musculoskeletal (Brief) Musculoskeletal: NOT FOUND: tenderness Integumentary (Brief) Integumentary: FOUND: dry, pink, warm Psychiatric (Brief) Psychiatric: FOUND: alert, oriented Sepsis Diagnostic Criteria Sepsis Confirmed/Suspected Infection: No Assessment & Plan Problems: (1) Elevated parathyroid hormone (2) Hypercalcemia (3) Vitamin B12 deficiency Status: Acute (4) Dehydration with hypernatremia Status: Resolved (5) Major neurocognitive disorder (6) Prostatism Status: Chronic (7) HTN (hypertension) Status: Chronic Qualifiers: Hypertension type: essential hypertension Qualified Codes: I10 - Essential (primary) hypertension (8) Hyperlipidemia Assessment & Plan: Atorvastatin 20 mg at bedtime started 10/31/16 Assessment Plan/Intensity of Service Check vitamin D level as recommended by clinical practice guidelines for hyperparathyroidism workup. In addition, thiazide diuretics can also contribute to hypercalcemia, so his Maxzide was discontinued. His renal function is fairly well preserved with an eGFR of 48. Will need further workup for elevated PTH, including bone density and urinary calcium excretion study. We will place consult for Dr. Alvarez for tomorrow. Hyperlipidemia: Start atorvastatin 20 mg at night. Repeat BMP tomorrow morning to follow up on renal function and calcium level. Monitor blood pressure since we are discontinuing Maxzide, may need additional control. Psychiatric progress notes reviewed. Code Status Do Not Resuscitate Hospital Course Summary Disclaimer The hospital course summary below is not to be considered part of the above Progress Note. Hospital Course Summary 10/22/16 Agree with admission to [facility]. At the time of evaluation, labs had not been yet obtained. We'll await results of workup to make further recommendations. Patient does have a history of hypertension, continue Maxzide and Norvasc. He has trace edema to bilateral lower extremities. Also history of prostatism and takes Proscar. Provide safe and supportive environment. 10/23/16- Patient continues to have aggressive behavior. Maintain safe environment- meds per attending. BP remains fairly elevated- add Atenolol. We may need to DC Maxzide if he remains clinically dry on labs Continue Norvasc, Proscar for BPH. Lab recheck pending in AM. 10/25/16 Blood pressure is doing better since atenolol was added. Sodium has improved to 144, however, slight increase noted in renal functions. May need to hold off on Maxzide if this continues. However, patient has been eating and drinking well. Hypercalcemia - check phos and PTH. Will repeat labs tomorrow morning. Psychiatric progress notes reviewed: Started Risperdal 0.5mg PO HS. ARACELI/RIPPA ordered 10/27/16 Serum calcium remains elevated, as well as PTH. Patient appears to be asymptomatic. May be a primary hyperparathyroidism versus malignant Attempted to contact Dr Alvarez however he is out of town until wednesday 11/01. Will likely need further outpatinet follow up Otherwise is medically stable BP is mildly elevated Continue with psychiatric care as per Dr Gonzalez 10/29/16 Did review hyperparathyroidism, elevated calcium and PTH levels. Dr. Alvarez is out of town until 11/01. If patient is still at [facility] could contact him for consultation. Also encourage patient to follow up outpatient for further evaluation Otherwise is medically stable BP currently is well controlled on Norvasc, atenolol and Maxzide 10/31/16 Check vitamin D level as recommended by clinical practice guidelines for hyperparathyroidism workup. In addition, thiazide diuretics can also contribute to hypercalcemia, so his Maxzide was discontinued. His renal function is fairly well preserved with an eGFR of 48. Will need further workup for elevated PTH, including bone density and urinary calcium excretion study. We will place consult for Dr. Alvarez for tomorrow. Hyperlipidemia: Start atorvastatin 20 mg at night. Repeat BMP tomorrow morning to follow up on renal function and calcium level. Monitor blood pressure since we are discontinuing Maxzide, may need additional control. Psychiatric progress notes reviewed. SUZI CASSIDY SUPERVISOR IN CHARGE October 31, 2016 09:27
--- NOTE | 2016-10-31 11:40 | NUR ---
CARES PT REPORTS THAT HE BATHED HIMSELF IN THE SINK WITH SOAP WATER AND WASH RAG PRIOR TO GETTING DRESSED FOR THE DAY. PT REPORTS HE WILL BRUSH HIS TEETH LATER WHEN HE FEELS LIKE IT. PT REFUSED AND REPORTS HE IS NOT INTERESTED IN SHOWERING TODAY. PT ENCOURAGED TO BATH TODAY AND INFORMED HE CAN AT ANY POINT TODAY IF HE REQUESTS. WILL REMIND PT AND REQUEST PT TAKE SHOWER AGAIN LATER IN SHIFT. Addendum: 10/31/16 at 1142 by SONIA LYON RN Amended: Links added.
--- NOTE | 2016-10-31 11:46 | NUR ---
STATUS PT ALERT ORIENTED TO PERSON AND PLACE. PT HAS BEEN QUIET AND COOPERATIVE. PT AGITATED ABOUT STILL BEING IN HOSPITAL REPORTS HE DOES NOT KNOW WHY HE IS HERE AND IS READY TO GO HOME. PT HAS BLUNTED ATTITUDE AND RESPONDS WITH SHORT ONE OR TWO WORD ANSWERS. PT REFUSED SHOWER AND ORAL CARE. PT HAS HAD NO PHYSICAL OR VERBAL AGGRESSION AND HAS HAD NO PRN MEDICATIONS THUS FAR THIS SHIFT.
--- NOTE | 2016-10-31 12:31 | GENPN ---
Chela Subjective Date DATE: 10/31/16 TIME: 12:29 Subjective/Severity of Illness Medications Current Medications Medications (Trade) Dose Ordered Sig/Giancarlo Start Time Stop Time Status Last Admin Dose Admin Amlodipine Besylate (Norvasc) 10 mg DAILY 10/23/16 09:00 10/24/16 09:01 DC 10/24/16 08:06 10 MG Finasteride (Proscar) 5 mg DAILY 10/23/16 09:00 10/31/16 08:20 5 MG Multivitamins/ Minerals (Vision) 1 tab DAILY 10/23/16 09:00 Future Hold 10/25/16 08:40 1 TAB Triamterene/HCTZ (Maxzide-25) 1 tab DAILY 10/23/16 09:00 10/24/16 09:01 DC 10/24/16 08:05 1 TAB Miscellaneous Medication (May use PRN orders) 1 PRN PRN 10/22/16 16:00 Haloperidol (Haldol) 0.5 mg Q6H PRN 10/22/16 16:00 10/23/16 16:29 DC Lorazepam (Ativan) 0.5 mg Q6H PRN 10/22/16 16:00 10/23/16 16:29 DC Lorazepam (Ativan) 0.5 mg Q6H PRN 10/22/16 16:00 10/23/16 16:29 DC Haloperidol Lactate (Haldol 5 Mg/ml Inj) 0.5 mg Q6H PRN 10/22/16 16:00 10/23/16 16:29 DC Lorazepam (Ativan Intensol) 0.5 mg Q6H PRN 10/23/16 04:00 10/23/16 16:29 DC Haloperidol (Haldol Liquid) 0.5 mg Q6H PRN 10/23/16 04:00 10/23/16 16:29 DC Amlodipine Besylate (Norvasc) 10 mg DAILY 10/25/16 09:00 10/31/16 08:20 10 MG Triamterene/HCTZ (Maxzide-25) 1 tab DAILY 10/25/16 09:00 10/31/16 07:22 DC 10/30/16 08:46 1 TAB Atenolol (TENORMIN 25 mg) 25 mg DAILY 10/24/16 09:00 10/31/16 08:20 25 MG Haloperidol (Haldol) 1 mg Q6H PRN 10/23/16 22:00 Haloperidol Lactate (Haldol 5 Mg/ml Inj) 1 mg Q6H PRN 10/23/16 22:00 Haloperidol (Haldol Liquid) 1 mg Q6H PRN 10/23/16 22:00 Lorazepam (Ativan) 1 mg Q6H PRN 10/23/16 22:00 Lorazepam (Ativan) 1 mg Q6H PRN 10/23/16 22:00 Lorazepam (Ativan Intensol) 1 mg Q6H PRN 10/23/16 22:00 10/24/16 17:16 1 MG Risperidone (Risperdal) 0.5 mg HS 10/24/16 21:00 10/27/16 10:32 DC Cyanocobalamin (Vit. B-12) 2,000 mcg DAILY 10/26/16 09:00 10/31/16 08:21 2,000 MCG Magnesium Hydroxide (Mom) 30 ml DAILY PRN 10/26/16 15:45 10/26/16 15:38 30 ML Risperidone (Risperdal) 0.5 mg 1730 10/27/16 17:30 10/27/16 17:30 DC Risperidone (Risperdal M) 0.5 mg 1730 10/27/16 17:30 10/30/16 17:32 0.5 MG Divalproex Sodium (Depakote Sprinkle) 125 mg BID 10/28/16 09:00 10/28/16 18:39 DC 10/28/16 17:34 125 MG Divalproex Sodium (Depakote Sprinkle) 125 mg 08,1730 10/29/16 08:00 10/31/16 08:20 125 MG Memantine (Namenda) 5 mg DAILY 10/29/16 09:00 10/31/16 08:20 5 MG Atorvastatin Calcium (LIPITOR 20 mg) 20 mg HS 10/31/16 21:00 UNV Subjective Pt seen and chart examined. Nursing reports pt slept well and has a good appetite. Nursing reports pt remains irritable at times but is redirectable and no behaviors noted. On face to face the pt is slightly irritable. He has poor insight and states he just wants to go home. Voices no concerns at this time. Tolerating meds Time of Service: 10:15 Start Time: 10:15 Stop Time: 10:30 Care >50% of this visit spent in counseling/coordination care. [facility] Exam Vitals Vital Signs Date Time Temp Pulse Resp B/P Pulse Ox O2 Delivery O2 Flow Rate FiO2 10/31/16 08:59 63 18 10/31/16 08:57 97.4 130/75 95 Room Air Physical examination performed by the hospitalist. Height (Feet): 5 Height (Inches): 9.00 Mental Status Exam Muscle Strength/Tone: Normal Dressing: Casual Grooming: Good Attitude: Guarded Motor Activity: Normal Eye Contact: Fair Speech: Slowed Volume: Normal Rhythm: Appropriate Rhythm Sensory: Alert Orientation: Oriented to person Mood: Irritable Affect: Congruent Rate of Thoughts: Delayed Thought Organization: Nenzel Associations: Illogical Abstract Reasoning: Impaired, concrete Thought Content: Normal Perception/Psychotic: Hx psychosis,not current Attention Span/Concentration: Short Span Fund of Knowledge: Poor fund of knowledge Memory: Poor-immediate, Poor-recent Suicidal Ideation: None Homicidal Ideation: None Insight: Poor Judgment: Poor Impulse Control: Fair Assessment and Plan (1) Major neurocognitive disorder Assessment: with behavioral disturbance 10/24/16: After discussion of risks/benefits, son/DPGUSTAVO Kwok consented to trial of Risperdal. Will start Risperdal 0.5mg PO q HS tonight. KATHLEEN/RIPPA ordered. 10/25/16: Cont current medications. Awaiting on Kathleen/Rippa 10/26/16: Discuss starting Depakote sprinkles with patient's DPOA 10/27/16: Change Risperidone to M-tab formulation. Consider adding Depakote after discussion with family. Depakote Sprinkles 125mg BID. Kathleen shows that patient requires 24 h sup. 10/28/16: Change Depakote to 0900 and 1730. Start Memantine 5mg daily. 10/29/16 Continue current care 10/30/16 Continue current care 10/31/16 Continue current care (2) HTN (hypertension) Qualifiers: Qualified Codes: I10 - Essential (primary) hypertension Cont. current psych. meds KENDRICK COX MD October 31, 2016 12:31
--- NOTE | 2016-10-31 13:43 | NUR ---
STATUS PT HAS VISITOR, PT SON VISITING WITH PT IN GROUP ROOM FOR PRIVACY. PT VISITING CALM AND QUIETLY WITH SON.
--- NOTE | 2016-10-31 13:50 | NUR ---
STATUS PT AND SON NOW AGITATED AND SPEAKING IN LOUD VOICES.
--- NOTE | 2016-10-31 14:30 | NUR ---
STATUS PT AND SON FINISHED SPEAKING IN GROUP ROOM AND GOING BACK TO PT ROOM. AT THIS TIME PT BECAME VERY AGITATED DUE TO FACT HOUSE KEEPING WAS IN HIS ROOM MOPPING THE FLOOR. PT AGITATED SOMEONE WOULD BE IN HIS ROOM WITHOUT HIS PERMISSION. PT AGITATED THAT HE IS NOT ABLE TO LOCK HIS ROOM AND HAVE A JACKSON FOR HIS ROOM. AT THIS TIME PT SON STATES THERE IS MORE FAMILY TO VISIT AND PT IS ABLE TO BE DISTRACTED AND REDIRECTED. PT HAS MORE FAMILY VISITING.
[2016-10-31] MEDS: RISPERIDONE 0.5 MG PO SCH (16:58)
[2016-10-31] MEDS: ATORVASTATIN 20 MG TABLET PO SCH (16:59)
--- NOTE | 2016-10-31 17:40 | NUR ---
SUMMARY PT ALERT TO PERSON AND AWARE HE IS IN HOSPITAL. PT AGITATED THAT HE IS IN HOSPITAL STATED "I DON'T EVEN KNOW WHY I AM HERE". PT HAS BEEN COMPLIANT WITH MEDICATIONS AND HAS REQUIRED NO PRN MEDICATIONS. PT WAS VERBALLY AGGRESSIVE AND LOUD WITH FAMILY AND STAFF DURING EPISODE WHERE BOARD HAMMER OPERATOR WAS IN ROOM WITHOUT AUTHORIZATION FROM PT. PT IS VERY PRIVATE AND DOES NOT WANT ANYONE TO ENTER HIS ROOM WITHOUT PERMISSION. PT IS COOPERATIVE AND FAIRLY PLEASANT WITH THIS RN LONG MAKING CLEAR WHAT ACTIONS ARE BEING DONE. PT FOLLOWS DIRECTIONS WHEN EXPLAINED CLEARLY. PT WILLINGLY TOOK SHOWER PRIOR TO DINNER.
[2016-10-31 20:00] VITALS: BP 118/80; PULSE 56; PULSE 86; RESP 18; TEMP 97; O2SAT 97
--- NOTE | 2016-10-31 21:45 | NUR ---
bedtime Pt went to bed at 2100, pt went to sleep at 21:45, pt is resting in bed with 2 bed rails up and bed alarm on.
--- NOTE | 2016-10-31 22:30 | NUR ---
bedtime Pt went to his room and to bed at 22:30, pt slept 15 minutes on dayshift, will monitor pt.
--- NOTE | 2016-10-31 23:30 | NUR ---
patient status Pt is alert and oriented x1, pt remains guarded when asked questions, pt cooperative with vital signs and assessment, pt states he has no pain, pt refused to answer question about day or where he is at. Pt sat in dayroom with staff and watched "home alone movie". Pt enjoyed visiting with another patient and reminded the patient to wait until staff helped her. Pt had no hs meds, pt refused a snack, pt went to bed at 22:30 and is sleeping, will monitor pt.
--- NOTE | 2016-11-01 00:54 | NUR ---
Chart Check 24 hour chart check completed
--- NOTE | 2016-11-01 06:31 | NUR ---
shift summary Pt is alert x1, pt is up with sba, pt sat in dayroom until 22:30, pt went to bed, pt has been up and down in his room during the night. Pt guarded with staff, pt did allow vital signs to be taken, pt allowed assessment to bed done, pt refused to answer any questions, pt refused a snack at hs. Pt is currently sleeping in bed with 2 bed rails up
[2016-11-01 08:05] VITALS: BP 150/76; PULSE 66; RESP 18; TEMP 98.1; O2SAT 96
[2016-11-01] MEDS: CYANOCOBALAMIN (B-12) 500mcg TABLET PO SCH (08:35)
[2016-11-01] MEDS: AMLODIPINE 10 MG TABLET PO SCH (08:35)
[2016-11-01] MEDS: MEMANTINE 5 MG TABLET PO SCH (08:35)
[2016-11-01] MEDS: DIVALPROEX SPRINKLE 125 MG CAPSULE PO SCH ×2 (08:35→16:56)
[2016-11-01] MEDS: ATENOLOL 25 MG TABLET PO SCH (08:36)
[2016-11-01] MEDS: FINASTERIDE 5 MG TABLET PO SCH (08:36)
--- NOTE | 2016-11-01 09:00 | NUR ---
SLEEP 9.0 Hours Pt went to bed at 2230 last night and awoke at 0800. Pt slept a total of 9.0 hours as documented on the 15 minute observation forms.
[2016-11-01 09:05] LABS: ANION GAP 11 MEQ/L (5-15); BUN/CREATININE RATIO 26 RATIO (6-26); CALCIUM 10.8 MG/DL (8.4-10.2); CHLORIDE 105 MEQ/L (98-107); CO2 - CARBON DIOXIDE 31 MEQ/L (22-30); CREATININE 1.4 MG/DL (0.8-1.5); GLOMERULAR FILTRATION RATE 48; GLUCOSE 146 MG/DL (75-110); POTASSIUM 4.2 MEQ/L (3.6-5); SODIUM 147 MEQ/L (134-144)
--- NOTE | 2016-11-01 10:56 | NUR ---
[facility] pt. He was sitting at the table staring out the window with frown on his face. When asked how he was doing, pt. spoke up in a loud voice, "Not very well. I want to know when I am going to get out of here. The doctor yesterday told me I would be getting out this morning." This SW explained that Dr. Bliss will not be here until 5:30 today and that he likely will not be discharging today. He spoke in a loud voice and said, "Then that doctor lied to me." Pt. insists Dr. Raymond told him he would be discharging back to his home this morning. Pt. stated he had to talk loud to make sure he is being heard because it feels to him like no one is listening. This SW validated pt's feelings of frustration. Pt. calmed quickly though he continues to have scowl on his face. He was invited to join psychoeducational group facilitated by [facility]. Pt. chose to stay seated at the table in the day room. He was allowed more time to de-escalate.
--- NOTE | 2016-11-01 11:19 | NUR ---
DRYWALL FINISHING FOREMAN -- TX PLAN CONSENT SW called pt's DPOA, Shorty (son), and went over the tx plan for pt. Son agreed to the tx plan. However, he stated, "I don't know if he will be able to do it or not." SW explained that pt would have to meet the goals to be able to leave and DPOA understood. SW asked about plans for discharge when the pt goes home. Pt will D/C home and Shorty states that there will be 24 hour care by family members. SW asked if son would like information on Private Duty companies and son replied that he would. Son will be up tomorrow to visit pt and SW will leave brochures available for the son to call and find a suitable company to assist in care.
--- NOTE | 2016-11-01 15:04 | NUR ---
Status Pt was cooperative with assessment, handles most of his own cares with minimal assistance and took all medications as prescribed, medications had to be laid out in the wrappers and it was explained what the medications were for. Pt has come out of his room for all meals and usually spends a good amount of time in the day room socializing before retiring to his room. Pt has had no physical or verbal aggression noted so far this shift. Pt is currently in his room resting.
--- NOTE | 2016-11-01 15:15 | NUR ---
CM CM LEFT VM FOR DPOA TIAN POST RECEIVING A MESSAGE OVER THE WEEKEND FROM TIAN REGARDING D/C PLAN. CM AWARE OF NOTES FROM [facility] TELESALES PROFESSIONAL. CM LVM TO CONFIRM D/C PLAN.
--- NOTE | 2016-11-01 15:45 | NUR ---
TECH ED TEACHER--PM GROUP Pt. was in his room and did not want to come out to join in the psychoeducational group facilitated by [facility].
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
[2016-11-01 16:32] VITALS: BP 138/75; PULSE 65; RESP 18; TEMP 97.8; O2SAT 94
[2016-11-01] MEDS: RISPERIDONE 0.5 MG PO SCH (16:56)
[2016-11-01] MEDS: ATORVASTATIN 20 MG TABLET PO SCH (16:57)
[2016-11-01 19:31] VITALS: BP 139/77; PULSE 70; RESP 18; TEMP 99; O2SAT 95
--- NOTE | 2016-11-01 20:00 | NUR ---
patient status Pt has a temp 99.0, pt requested nothing be done about his temp, will monitor pt
[2016-11-01 20:37] VITALS: PULSE 95; RESP 18
--- NOTE | 2016-11-02 00:19 | NUR ---
Chart Check 24 hour chart check completed
--- NOTE | 2016-11-02 06:19 | NUR ---
shift summary Pt is alert and orientated x1, pt is up ad carmella in the hallways, pt went to his room at the start of shift, pt has a temp of 99 degrees, pt states he does not want any medications or anything done about the slight temp. Pt then went to bed, pt has been sleeping in bed with 2 bed rails up. Pt went to sleep at 21:45, pt remains sleeping in bed. will monitor pt
--- NOTE | 2016-11-02 07:30 | NUR ---
Awake: sleep times Pt slept 9.5 hours. Pt fell asleep around 2145, and woke up at this time. Will continue to monitor.
[2016-11-02 07:43] VITALS: BP 151/81; PULSE 63; RESP 20; TEMP 97.8; O2SAT 96
[2016-11-02] MEDS: MEMANTINE 5 MG TABLET PO SCH (07:45)
[2016-11-02] MEDS: AMLODIPINE 10 MG TABLET PO SCH (07:45)
[2016-11-02] MEDS: CYANOCOBALAMIN (B-12) 500mcg TABLET PO SCH (07:45)
[2016-11-02] MEDS: ATENOLOL 25 MG TABLET PO SCH (07:46)
[2016-11-02] MEDS: DIVALPROEX SPRINKLE 125 MG CAPSULE PO SCH ×2 (07:46→17:51)
[2016-11-02] MEDS: FINASTERIDE 5 MG TABLET PO SCH (07:46)
[2016-11-02 07:51] VITALS: PULSE 63; RESP 20
--- NOTE | 2016-11-02 08:30 | NUR ---
DEVAN CM SPOKE WITH DAYANARA BLANCO AND PT WILL RETURN HOME AT TIME OF D/C FROM [facility] [place]. PT WILL HAVE 24 HOUR CARE WITH A JOB COACHING PLAN OF GOING TO A FACILITY. DAYANARA IS AWARE THAT PT COULD D/C HOME TODAY OR TOMORROW PENDING DR FORBES. DEVAN WILL FOLLOW UP WITH BELLA TODAY POST DR FORBES ASSESSMENT OF PT. BELLA AWARE TO CONTACT DEVAN IF NEEDS ARISE.
--- NOTE | 2016-11-02 13:43 | NUR ---
CM CM LEFT VM FOR BELLA REGARDING PT D/C TOMORROW AND NEED FOR PRECISION ASSEMBLER TIME. DEVAN SPOKE IWTH ALEXANDRIA BLANCO REGARDING D/C PLAN AND PRECISION ASSEMBLER TIME NEEDED. ALEXANDRIA WILL GET A HOLD OF BELLA AND CALL DEVAN WITH A PRECISION ASSEMBLER TIME.
--- NOTE | 2016-11-02 14:00 | NUR ---
mid shift Pt has been pleasant and cooperative. Pt has been easier to speak with and less defensive than previous when this RN assessed 1 week ago. Pt did take medications whole without difficulty this morning. Pt mood is bright and points out the beautiful geese on the water and smiles easily. Pt has denied suicide ideation and no verbal threats or physical aggression seen this far. PT shared a closed bottle of Dr. Ruano with other Pt. Pt remains in no acute distress. Will continue to monitor. Pt denies pain and refuses to take any pain medication.
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
--- NOTE | 2016-11-02 15:56 | GENPN ---
Chela Subjective Date DATE: 11/01/16 TIME: 18:23 Subjective/Severity of Illness Medications Current Medications Medications (Trade) Dose Ordered Sig/Giancarlo Start Time Stop Time Status Last Admin Dose Admin Amlodipine Besylate (Norvasc) 10 mg DAILY 10/23/16 09:00 10/24/16 09:01 DC 10/24/16 08:06 10 MG Finasteride (Proscar) 5 mg DAILY 10/23/16 09:00 11/01/16 08:36 5 MG Multivitamins/ Minerals (Vision) 1 tab DAILY 10/23/16 09:00 Future Hold 10/25/16 08:40 1 TAB Triamterene/HCTZ (Maxzide-25) 1 tab DAILY 10/23/16 09:00 10/24/16 09:01 DC 10/24/16 08:05 1 TAB Miscellaneous Medication (May use PRN orders) 1 PRN PRN 10/22/16 16:00 Haloperidol (Haldol) 0.5 mg Q6H PRN 10/22/16 16:00 10/23/16 16:29 DC Lorazepam (Ativan) 0.5 mg Q6H PRN 10/22/16 16:00 10/23/16 16:29 DC Lorazepam (Ativan) 0.5 mg Q6H PRN 10/22/16 16:00 10/23/16 16:29 DC Haloperidol Lactate (Haldol 5 Mg/ml Inj) 0.5 mg Q6H PRN 10/22/16 16:00 10/23/16 16:29 DC Lorazepam (Ativan Intensol) 0.5 mg Q6H PRN 10/23/16 04:00 10/23/16 16:29 DC Haloperidol (Haldol Liquid) 0.5 mg Q6H PRN 10/23/16 04:00 10/23/16 16:29 DC Amlodipine Besylate (Norvasc) 10 mg DAILY 10/25/16 09:00 11/01/16 08:35 10 MG Triamterene/HCTZ (Maxzide-25) 1 tab DAILY 10/25/16 09:00 10/31/16 07:22 DC 10/30/16 08:46 1 TAB Atenolol (TENORMIN 25 mg) 25 mg DAILY 10/24/16 09:00 11/01/16 08:36 25 MG Haloperidol (Haldol) 1 mg Q6H PRN 10/23/16 22:00 Haloperidol Lactate (Haldol 5 Mg/ml Inj) 1 mg Q6H PRN 10/23/16 22:00 Haloperidol (Haldol Liquid) 1 mg Q6H PRN 10/23/16 22:00 Lorazepam (Ativan) 1 mg Q6H PRN 10/23/16 22:00 Lorazepam (Ativan) 1 mg Q6H PRN 10/23/16 22:00 Lorazepam (Ativan Intensol) 1 mg Q6H PRN 10/23/16 22:00 10/24/16 17:16 1 MG Risperidone (Risperdal) 0.5 mg HS 10/24/16 21:00 10/27/16 10:32 DC Cyanocobalamin (Vit. B-12) 2,000 mcg DAILY 10/26/16 09:00 11/01/16 08:35 2,000 MCG Magnesium Hydroxide (Mom) 30 ml DAILY PRN 10/26/16 15:45 10/26/16 15:38 30 ML Risperidone (Risperdal) 0.5 mg 1730 10/27/16 17:30 10/27/16 17:30 DC Risperidone (Risperdal M) 0.5 mg 1730 10/27/16 17:30 11/01/16 16:56 0.5 MG Divalproex Sodium (Depakote Sprinkle) 125 mg BID 10/28/16 09:00 10/28/16 18:39 DC 10/28/16 17:34 125 MG Divalproex Sodium (Depakote Sprinkle) 125 mg 08,1730 10/29/16 08:00 11/01/16 16:56 125 MG Memantine (Namenda) 5 mg DAILY 10/29/16 09:00 11/01/16 08:35 5 MG Atorvastatin Calcium (LIPITOR 20 mg) 20 mg HS 10/31/16 21:00 11/01/16 16:57 20 MG Subjective Patient seen and chart reviewed. Case discussed with treatment team. On interview, patient perseverates on discharge throughout the appointment. He is not happy about staying longer but is accepting of my explanation. He lacks insight into reasons behind admission but admits that he has always had some anger problems. He understands why his behavior could be problematic for his interactions with others. He feels very angry when he doesn't feel like others are listening or that they have lied to him. Patient denies any SI, HI or AVH. Patient denies any adverse side effects related to psychotropic medications. Nursing staff report patient has been focusing on discharge but redirectable, and is adherent with medications if they are given at suppertime. Patient slept 9 hours overnight. VSS. Patient is eating well. Psychotropic PRNs required in the past 24 hours: none. Dr. Alvarez, cab driver, saw patient today and diagnosed him with hypercalcemia and primary hyperparathyroidism. Recommended avoiding thiazide diuretics and close monitoring otherwise. I also spoke with both of patient's sons, and they are considering placement vs. home with 24-hour family supervision. Time of Service: 10:15 Start Time: 18:20 Stop Time: 18:40 Care >50% of this visit spent in counseling/coordination care. Generations Exam Vitals Vital Signs Date Time Temp Pulse Resp B/P Pulse Ox O2 Delivery O2 Flow Rate FiO2 11/01/16 16:32 97.8 65 18 138/75 94 Room Air Physical examination performed by the hospitalist. Height (Feet): 5 Height (Inches): 9.00 Mental Status Exam Muscle Strength/Tone: Normal Dressing: Casual Grooming: Fair Attitude: Tense Motor Activity: Normal Eye Contact: Good Speech: Normal Volume: Normal Rhythm: Appropriate Rhythm Sensory: Alert Orientation: Oriented to person, Oriented to place Mood: Neutral Affect: Stable Rate of Thoughts: Appropriate Rate Thought Organization: Perseverations (on discharge), Confused (at times) Associations: Illogical (at times) Abstract Reasoning: Poor abstract reasoning Thought Content: Other (Irritation re: hospitalizations) Perception/Psychotic: Perception Normal Attention Span/Concentration: Distractable Language: Naming Intact Fund of Knowledge: Other (Decreased) Memory: Poor-recent, Poor-remote Suicidal Ideation: Denies Homicidal Ideation: Denies Insight: Limited Judgment: Limited Impulse Control: Fair Laboratory Tests Test 11/01/16 08:42 Turbidity < 20 Sodium Level 147MEQ/L Potassium Level 4.2MEQ/L Chloride Level 105MEQ/L Carbon Dioxide Level 31MEQ/L Anion Gap 11MEQ/L Blood Urea Nitrogen 37.0MG/DL Creatinine 1.4MG/DL Glomerular Filtration Rate Calc 48 BUN/Creatinine Ratio 26RATIO Glucose Level 146MG/DL Calculated Osmolality 294MOSM/KG Calcium Level 10.8MG/DL Icterus Index < 2 25-Hydroxy Vitamin D Total Pending Chemistry Specimen Hemolysis < 15 Assessment and Plan (1) Major neurocognitive disorder Assessment: with behavioral disturbance 10/24/16: After discussion of risks/benefits, son/DPOA Sundar consented to trial of Risperdal. Will start Risperdal 0.5mg PO q HS tonight. KATHLEEN/RIPPA ordered. 10/25/16: Cont current medications. Awaiting on Kathleen/Rippa 10/26/16: Discuss starting Depakote sprinkles with patient's DPOA 10/27/16: Change Risperidone to M-tab formulation. Consider adding Depakote after discussion with family. Depakote Sprinkles 125mg BID. Kathleen shows that patient requires 24 h sup. 10/28/16: Change Depakote to 0900 and 1730. Start Memantine 5mg daily. 10/29/16 Continue current care 10/30/16 Continue current care 10/31/16 Continue current care 11/01/16: Continue current care; need to discuss discharge options with family further - 24 hr in-home supervision vs. placement in LTC facility. (2) HTN (hypertension) Qualifiers: Qualified Codes: I10 - Essential (primary) hypertension Cont. current psych. meds DL FORBES MD November 01, 2016 18:23
--- NOTE | 2016-11-02 16:02 | GENPN ---
Chela Subjective Date DATE: 11/02/16 TIME: 15:57 Subjective/Severity of Illness Medications Current Medications Medications (Trade) Dose Ordered Sig/Giancarlo Start Time Stop Time Status Last Admin Dose Admin Amlodipine Besylate (Norvasc) 10 mg DAILY 10/23/16 09:00 10/24/16 09:01 DC 10/24/16 08:06 10 MG Finasteride (Proscar) 5 mg DAILY 10/23/16 09:00 11/02/16 07:46 5 MG Multivitamins/ Minerals (Vision) 1 tab DAILY 10/23/16 09:00 Future Hold 10/25/16 08:40 1 TAB Triamterene/HCTZ (Maxzide-25) 1 tab DAILY 10/23/16 09:00 10/24/16 09:01 DC 10/24/16 08:05 1 TAB Miscellaneous Medication (May use PRN orders) 1 PRN PRN 10/22/16 16:00 Haloperidol (Haldol) 0.5 mg Q6H PRN 10/22/16 16:00 10/23/16 16:29 DC Lorazepam (Ativan) 0.5 mg Q6H PRN 10/22/16 16:00 10/23/16 16:29 DC Lorazepam (Ativan) 0.5 mg Q6H PRN 10/22/16 16:00 10/23/16 16:29 DC Haloperidol Lactate (Haldol 5 Mg/ml Inj) 0.5 mg Q6H PRN 10/22/16 16:00 10/23/16 16:29 DC Lorazepam (Ativan Intensol) 0.5 mg Q6H PRN 10/23/16 04:00 10/23/16 16:29 DC Haloperidol (Haldol Liquid) 0.5 mg Q6H PRN 10/23/16 04:00 10/23/16 16:29 DC Amlodipine Besylate (Norvasc) 10 mg DAILY 10/25/16 09:00 11/02/16 07:45 10 MG Triamterene/HCTZ (Maxzide-25) 1 tab DAILY 10/25/16 09:00 10/31/16 07:22 DC 10/30/16 08:46 1 TAB Atenolol (TENORMIN 25 mg) 25 mg DAILY 10/24/16 09:00 11/02/16 07:46 25 MG Haloperidol (Haldol) 1 mg Q6H PRN 10/23/16 22:00 Haloperidol Lactate (Haldol 5 Mg/ml Inj) 1 mg Q6H PRN 10/23/16 22:00 Haloperidol (Haldol Liquid) 1 mg Q6H PRN 10/23/16 22:00 Lorazepam (Ativan) 1 mg Q6H PRN 10/23/16 22:00 Lorazepam (Ativan) 1 mg Q6H PRN 10/23/16 22:00 Lorazepam (Ativan Intensol) 1 mg Q6H PRN 10/23/16 22:00 10/24/16 17:16 1 MG Risperidone (Risperdal) 0.5 mg HS 10/24/16 21:00 10/27/16 10:32 DC Cyanocobalamin (Vit. B-12) 2,000 mcg DAILY 10/26/16 09:00 11/02/16 07:45 2,000 MCG Magnesium Hydroxide (Mom) 30 ml DAILY PRN 10/26/16 15:45 10/26/16 15:38 30 ML Risperidone (Risperdal) 0.5 mg 1730 10/27/16 17:30 10/27/16 17:30 DC Risperidone (Risperdal M) 0.5 mg 1730 10/27/16 17:30 11/01/16 16:56 0.5 MG Divalproex Sodium (Depakote Sprinkle) 125 mg BID 10/28/16 09:00 10/28/16 18:39 DC 10/28/16 17:34 125 MG Divalproex Sodium (Depakote Sprinkle) 125 mg 08,1730 10/29/16 08:00 11/02/16 07:46 125 MG Memantine (Namenda) 5 mg DAILY 10/29/16 09:00 11/02/16 07:45 5 MG Atorvastatin Calcium (LIPITOR 20 mg) 20 mg HS 10/31/16 21:00 11/01/16 16:57 20 MG Subjective Patient seen and chart reviewed. Case discussed with treatment team. On interview, patient perseverates on discharge throughout visit but is redirectable. Family has decided to take him home with 24-hour supervision. Discussed this with him as well as recommendation not to drive. He says he does not agree with these recommendations but will follow them. Patient denies any SI, HI or AVH. Patient denies any adverse side effects related to psychotropic medications. Nursing staff report patient has been focusing on discharge but redirectable, and is adherent with medications if they are given at suppertime. Patient slept 8.5 hours overnight. VSS. Patient is eating well. Psychotropic PRNs required in the past 24 hours: none. Dr. Alvarez, wash oil pump operator helper, saw patient on 11/01/16 and diagnosed him with hypercalcemia and primary hyperparathyroidism. Recommended avoiding thiazide diuretics and close monitoring otherwise. I have attempted to reach son Shorty on multiple occasions today and left voicemails for him. SW has discussed safety with family such as no access to firearms/weapons, need for 24-hour supervision and med management, locking medications away from patient's access (Rx and OTC), and recommendation that patient no longer be allowed to drive. Time of Service: 10:15 Start Time: 11:30 Stop Time: 11:50 Care >50% of this visit spent in counseling/coordination care. Generations Exam Vitals Vital Signs Date Time Temp Pulse Resp B/P Pulse Ox O2 Delivery O2 Flow Rate FiO2 11/02/16 07:51 63 20 11/02/16 07:43 97.8 151/81 96 Room Air Physical examination performed by the hospitalist. Height (Feet): 5 Height (Inches): 9.00 Mental Status Exam Muscle Strength/Tone: Normal Dressing: Casual Grooming: Fair Attitude: Cooperative Motor Activity: Normal Eye Contact: Good Volume: Normal Rhythm: Appropriate Rhythm Sensory: Alert Orientation: Oriented to person Mood: Neutral Affect: Stable Rate of Thoughts: Delayed Thought Organization: Confused (at times) Associations: Illogical (at times) Abstract Reasoning: Poor abstract reasoning Thought Content: Normal (other than would like to discharge) Perception/Psychotic: Perception Normal Attention Span/Concentration: Distractable Language: Naming Intact Fund of Knowledge: Other (Decreased) Memory: Poor-recent, Poor-remote Suicidal Ideation: Denies Homicidal Ideation: Denies Insight: Limited Judgment: Limited Impulse Control: Fair Assessment and Plan (1) Major neurocognitive disorder Assessment: with behavioral disturbance, Alzheimer's probable 10/24/16: After discussion of risks/benefits, son/DPGUSTAVO Kwok consented to trial of Risperdal. Will start Risperdal 0.5mg PO q HS tonight. KATHLEEN/RIPPA ordered. 10/25/16: Cont current medications. Awaiting on Kathleen/Rippa 10/26/16: Discuss starting Depakote sprinkles with patient's DPOA 10/27/16: Change Risperidone to M-tab formulation. Consider adding Depakote after discussion with family. Depakote Sprinkles 125mg BID. Kathleen shows that patient requires 24 h sup. 10/28/16: Change Depakote to 0900 and 1730. Start Memantine 5mg daily. 10/29/16 Continue current care 10/30/16 Continue current care 10/31/16 Continue current care 11/01/16: Continue current care; need to discuss discharge options with family further - 24 hr in-home supervision vs. placement in LTC facility. 11/02/16: Continue current care and make arrangements with family for discharge tomorrow. They agree to provide 24-hour supervision for patient. Have discussed safety recommendations (no access to medications or firearms/weapons, no driving ). (2) HTN (hypertension) Qualifiers: Qualified Codes: I10 - Essential (primary) hypertension Cont. current psych. meds DL FORBES MD November 02, 2016 16:00
[2016-11-02] MEDS ORDERED: DIVA125C PO (16:10)
[2016-11-02] MEDS ORDERED: MEMA5TAB7 PO (16:10)
[2016-11-02] MEDS ORDERED: RISP0.5T5 PO (16:10)
[2016-11-02 16:53] VITALS: BP 136/73; PULSE 62; RESP 16; TEMP 98; O2SAT 97
[2016-11-02] MEDS ORDERED: ATORVASTATIN 20 MG TABLET PO SCH (17:30)
[2016-11-02] MEDS: RISPERIDONE 0.5 MG PO SCH (17:52)
--- NOTE | 2016-11-02 18:54 | NUR ---
Summary Pt has been A/O X 3 after told what day it was. Pt asked if the white board was correct with the date, Pt told that it was and able to remember that. Pt working on word puzzle now. Pt participated in afternoon group of BRITTNEE and eligio. Pt acted appropriate and smiled during group activity. Pt aware of his discharge tomorrow and ready to go. Pt mood has been uplifting and affect has remained bright. Pt's appetite remains good, 75-100% of all meals. Output adequate. Will continue to monitor. Pt denies pain this shift. No verbal threats noted. No acts of physical aggression.
[2016-11-02 22:04] VITALS: PULSE 63; RESP 16
[2016-11-02 22:08] VITALS: BP 136/74; PULSE 63; RESP 16; TEMP 98.1; O2SAT 93
--- NOTE | 2016-11-03 00:37 | NUR ---
Chart Check 24 hour chart check completed
--- NOTE | 2016-11-03 00:58 | NUR ---
Bed time Pt went to bed at 2044 and was sleeping at 0. No sleep time during day hours. Currently sleeping. Will continue to monitor
--- NOTE | 2016-11-03 00:59 | NUR ---
Mid shift status Pt was sitting in dining area working on [employer]. Pt pleasant and cooperative with vitals and assessment. Alert to person. Up SBA. Pt reported to warehouse assistant that he had not eaten any dinner, so house went and got him some food. Pt ate his food and went to his room to lay down at 2044. This nurse checked on pt at 2044. Pt told this nurse to come in so he could talk a minute. Pt told this nurse "that patient in the next room has some major problems and I want you to know that I am not going to give you or him (referring to female pt who was in next room screaming) any problems. I know you all will take care of that pt because that pt needs more care from you than I do, I will be fine. But I can handle things if I have to and take care of myself". This nurse assured pt that the staff on this unit have everything taken care of and would not need his assistance. Pt satisfied. He then went on to ask about breakfast and what time it will be. Pt went on to let me know to remind other nurses to remember to knock before entering his room "because they have just been coming on in and not knocking and that gets me upset". Assured pt I would remind staff and he was appreciative. Pt did make a comment about leaving tomorrow to go home "I hope I really get to go and they just aren't telling me that". Pt was pleasant during this conversation. Pt has not raised his voice at all this shift. No verbal or physical aggression displayed. No PRNs given. Currently sleeping. Bed rails up x 2 and alarm on. Will continue to monitor
--- NOTE | 2016-11-03 05:42 | NUR ---
Summary Pt has been sleeping since 2129, up for a short time around 0100 and back to sleep. Pt alert to person. Up SBA. Pt has been pleasant and cooperative this shift. No display of verbal or physical aggression. No agitation or behaviors noted. No PRNs given this shift. Pt has not raised his voice at anyone this shift. Pt has talked about being discharged the next morning and he states he hopes it is true. Currently sleeping. Bed rails up x 2 and alarm on. Will continue to monitor
[2016-11-03] MEDS: DIVALPROEX SPRINKLE 125 MG CAPSULE PO SCH (07:50)
[2016-11-03] MEDS: FINASTERIDE 5 MG TABLET PO SCH (07:50)
[2016-11-03] MEDS: ATENOLOL 25 MG TABLET PO SCH (07:50)
[2016-11-03] MEDS: AMLODIPINE 10 MG TABLET PO SCH (07:51)
[2016-11-03] MEDS: CYANOCOBALAMIN (B-12) 500mcg TABLET PO SCH (07:51)
[2016-11-03] MEDS: MEMANTINE 5 MG TABLET PO SCH (07:51)
[2016-11-03 07:56] VITALS: BP 162/74; PULSE 63; RESP 18; TEMP 98.2; O2SAT 96
--- NOTE | 2016-11-03 10:15 | NUR ---
HACKLER DOLL WIGS--INDIVIDUAL LSCSW met with pt. 1:1. Reviewed patient's progress towards meeting treatment goals. Pt. states he doesn't feel his hospital stay has done "one bit of good." He continues to verbalize the belief that his sons only want his money and would have preferred that he during his hospital stay. Talked with patient about the importance of maintaining positive family relationships. He admits he finds it very hard to express his feelings towards his family but he has shown it through the years by being a good provider. Pt. states he doesn't believe the doctor's recommendation that he needs 24 hour care--he thinks he is capable of caring for himself. Pt. was asked if he would consider talking with a therapist/counselor to help him through the transitions he is experiencing in life. Pt. stated he does not want any appts. scheduled for counseling at this time.
--- NOTE | 2016-11-03 10:33 | GENPN ---
Chela Subjective Date DATE: 11/03/16 TIME: : Subjective/Severity of Illness Medications Current Medications Medications (Trade) Dose Ordered Sig/Giancalro Start Time Stop Time Status Last Admin Dose Admin Amlodipine Besylate (Norvasc) 10 mg DAILY 10/23/16 09:00 10/24/16 09:01 DC 10/24/16 08:06 10 MG Finasteride (Proscar) 5 mg DAILY 10/23/16 09:00 11/03/16 07:50 5 MG Multivitamins/ Minerals (Vision) 1 tab DAILY 10/23/16 09:00 Future Hold 10/25/16 08:40 1 TAB Triamterene/HCTZ (Maxzide-25) 1 tab DAILY 10/23/16 09:00 10/24/16 09:01 DC 10/24/16 08:05 1 TAB Miscellaneous Medication (May use PRN orders) 1 PRN PRN 10/22/16 16:00 Haloperidol (Haldol) 0.5 mg Q6H PRN 10/22/16 16:00 10/23/16 16:29 DC Lorazepam (Ativan) 0.5 mg Q6H PRN 10/22/16 16:00 10/23/16 16:29 DC Lorazepam (Ativan) 0.5 mg Q6H PRN 10/22/16 16:00 10/23/16 16:29 DC Haloperidol Lactate (Haldol 5 Mg/ml Inj) 0.5 mg Q6H PRN 10/22/16 16:00 10/23/16 16:29 DC Lorazepam (Ativan Intensol) 0.5 mg Q6H PRN 10/23/16 04:00 10/23/16 16:29 DC Haloperidol (Haldol Liquid) 0.5 mg Q6H PRN 10/23/16 04:00 10/23/16 16:29 DC Amlodipine Besylate (Norvasc) 10 mg DAILY 10/25/16 09:00 11/03/16 07:51 10 MG Triamterene/HCTZ (Maxzide-25) 1 tab DAILY 10/25/16 09:00 10/31/16 07:22 DC 10/30/16 08:46 1 TAB Atenolol (TENORMIN 25 mg) 25 mg DAILY 10/24/16 09:00 11/03/16 07:50 25 MG Haloperidol (Haldol) 1 mg Q6H PRN 10/23/16 22:00 Haloperidol Lactate (Haldol 5 Mg/ml Inj) 1 mg Q6H PRN 10/23/16 22:00 Haloperidol (Haldol Liquid) 1 mg Q6H PRN 10/23/16 22:00 Lorazepam (Ativan) 1 mg Q6H PRN 10/23/16 22:00 Lorazepam (Ativan) 1 mg Q6H PRN 10/23/16 22:00 Lorazepam (Ativan Intensol) 1 mg Q6H PRN 10/23/16 22:00 10/24/16 17:16 1 MG Risperidone (Risperdal) 0.5 mg HS 10/24/16 21:00 10/27/16 10:32 DC Cyanocobalamin (Vit. B-12) 2,000 mcg DAILY 10/26/16 09:00 11/03/16 07:51 2,000 MCG Magnesium Hydroxide (Mom) 30 ml DAILY PRN 10/26/16 15:45 10/26/16 15:38 30 ML Risperidone (Risperdal) 0.5 mg 1730 10/27/16 17:30 10/27/16 17:30 DC Risperidone (Risperdal M) 0.5 mg 1730 10/27/16 17:30 11/02/16 17:52 0.5 MG Divalproex Sodium (Depakote Sprinkle) 125 mg BID 10/28/16 09:00 10/28/16 18:39 DC 10/28/16 17:34 125 MG Divalproex Sodium (Depakote Sprinkle) 125 mg 08,1730 10/29/16 08:00 11/03/16 07:50 125 MG Memantine (Namenda) 5 mg DAILY 10/29/16 09:00 11/03/16 07:51 5 MG Atorvastatin Calcium (LIPITOR 20 mg) 20 mg HS 10/31/16 21:00 11/02/16 16:46 DC 11/01/16 16:57 20 MG Atorvastatin Calcium (LIPITOR 20 mg) 20 mg 1730 11/02/16 17:30 11/02/16 17:43 20 MG Subjective Patient seen and chart reviewed. Case discussed with treatment team. On interview, patient is concerned about his belongings butdirectable. Family has decided to take him home with 24-hour supervision. Discussed this with him as well as recommendation not to drive. He says he does not agree with these recommendations but will follow them. Patient denies any SI, HI or AVH. Patient denies any adverse side effects related to psychotropic medications. Nursing staff report patient has been pleasant and cooperative, interacting well with other patients and less isolative. He had an insightful/engaging session with SW yesterday about his goals for the future. Patient slept 8 hours overnight. VSS. Patient is eating well. Psychotropic PRNs required in the past 24 hours: none. Dr. Alvarez, senior materials planner, saw patient on 11/01/16 and diagnosed him with hypercalcemia and primary hyperparathyroidism. Recommended avoiding thiazide diuretics and close monitoring otherwise. SW has discussed safety with family such as no access to firearms/weapons, need for 24-hour supervision and med management, locking medications away from patient's access (Rx and OTC), and recommendation that patient no longer be allowed to drive. I left voicemails for DAYANARA Oro on 11/02 but was able to speak with his Zena today and again review safety recommendations as above, which she understood and agreed with. Time of Service: 10:15 Start Time: 08:20 Stop Time: 08:40 Care >50% of this visit spent in counseling/coordination care. [facility] Exam Vitals Vital Signs Date Time Temp Pulse Resp B/P Pulse Ox O2 Delivery O2 Flow Rate FiO2 11/03/16 07:56 98.2 63 18 162/74 96 Room Air Physical examination performed by the hospitalist. Height (Feet): 5 Height (Inches): 9.00 Mental Status Exam Muscle Strength/Tone: Normal Dressing: Casual Grooming: Fair Attitude: Cooperative Motor Activity: Normal Eye Contact: Good Speech: Normal Volume: Normal Rhythm: Appropriate Rhythm Sensory: Alert Orientation: Oriented to person, Oriented to place Mood: Neutral Affect: Stable Rate of Thoughts: Delayed Thought Organization: Confused (at times) Associations: Intact Abstract Reasoning: Poor abstract reasoning Thought Content: Normal (other than understandable frustration re: loss of independence) Perception/Psychotic: Perception Normal Language: Naming Intact Fund of Knowledge: Other (Decreased) Memory: Poor-recent, Poor-remote Suicidal Ideation: Denies Homicidal Ideation: Denies Insight: Limited Judgment: Limited Impulse Control: Fair Assessment and Plan (1) Major neurocognitive disorder Assessment: with behavioral disturbance, Alzheimer's probable 10/24/16: After discussion of risks/benefits, son/DPOA Sundar consented to trial of Risperdal. Will start Risperdal 0.5mg PO q HS tonight. KATHLEEN/RIPPA ordered. 10/25/16: Cont current medications. Awaiting on Kathleen/Rippa 10/26/16: Discuss starting Depakote sprinkles with patient's DPOA 10/27/16: Change Risperidone to M-tab formulation. Consider adding Depakote after discussion with family. Depakote Sprinkles 125mg BID. Kathleen shows that patient requires 24 h sup. 10/28/16: Change Depakote to 0900 and 1730. Start Memantine 5mg daily. 10/29/16 Continue current care 10/30/16 Continue current care 10/31/16 Continue current care 11/01/16: Continue current care; need to discuss discharge options with family further - 24 hr in-home supervision vs. placement in LTC facility. 11/02/16: Continue current care and make arrangements with family for discharge tomorrow. They agree to provide 24-hour supervision for patient. Have discussed safety recommendations (no access to medications or firearms/weapons, no driving ). 11/03/16: Plan for discharge to home with 24-hour family supervision today; safety recommendations again reviewed with [id number] Zena as her Shorty (patient's DPOA) has not been available yesterday or today. (2) HTN (hypertension) Qualifiers: Qualified Codes: I10 - Essential (primary) hypertension Cont. current psych. meds DL FORBES MD November 03, 2016 08:17
--- NOTE | 2016-11-03 11:00 | NUR ---
AUTOMOTIVE PROFESSIONAL--AM GROUP Pt. was present and actively engaged in psychoeducational group facilitated by [facility]. Topic included favorite things to do on a rainy day. Talked about [place] weather and the beauty of thunderstorms. Pt. was attentive and listened as others contributed their thoughts. Pt. is oriented to person and place (did not assess for date). Pt. is aware he is going home today so "goodbyes" were shared. Played [employer] game to stimulate social interaction and mood improvement. Pt. was active participant, guessing many answers correctly. Ended group with listening to variety of music tunes. Patient expressed enjoyment of listening to [employer]. He smiled as he watched another patient and staff dance.
[2016-11-03] MEDS ORDERED: ATOR20TA PO (11:05)
[2016-11-03] MEDS ORDERED: ATEN25TA PO (11:05)
--- NOTE | 2016-11-03 13:04 | NUR ---
AUTOMOTIVE REFINISHER--FAMILY CONTACT [facility] spoke 1:1 with patient's [id number] (Tasia). She exhibited a very positive attitude about taking patient home as she promised. JORDANA is aware of the 24 hour care recommendation and says she wants to give it a try and if it only lasts a day, she at least gave it a try. She said she will try but she cannot make him take his medications. 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 She said for the first several years of her marriage, she called him "Mr. Childress." She has just recently become more comfortable calling him "Jolie" and she says she has grown to love him. She said his negative attitude is not much different than it has been for the last 20 years. She thinks that we saw the worst in him because his rights were taken away while he was here. She said he has a fairly large network of friends and support people with whom he interacts every day (either at meals in the community or at mandaen). She was reminded that the testing shows he needs assistance managing his finances. She said they took care of that a few days ago. He will be given his spending money but everything else will be supervised. She knows he will try and make her leave and she said she just tells him, "I'm not done with my woman chores" and he quiets down. JORDANA was given handout on stages of dementia and SW business card. She was encouraged to call if she has future questions.
--- NOTE | 2016-11-03 13:24 | NUR ---
Patient Status/Discharge Patient leaves unit at 1315 accompanied by GEN staff member and [id number], Zena. He discharged home with f/u appointments in place. Prescriptions called to [facility] [place]. Discharge teaching provided to both DIL and patient. Reinforcement needed with patient, gave multiple reminders take medications as prescribed by the physician to avoid any further h Addendum: 11/03/16 at 1331 by RY NARVAEZ RN *to avoid further complications. Prior to discharge patient was cooperative but angry with too much staff interactions. He was gruff during doctor visit demanding his belongings because he felt that staff would lose it and were not taking care of it. patient is assured by this RN, doctor and senior net programmer that his belongings would be returned. Inventory list printed and items sent with patient at discharge Addendum: 11/03/16 at 1409 by RY NARVAEZ RN Unit contact information given to Zena, [id number], along with plans for follow-up care with PCP and MH professional as outlined in PHS. No pending labs on discharge
== END 2016-11-03 13:15 | disposition home or self-care (01) | DRG 884 ==
LOC: GEN 14:00
PROVIDERS: ADMIT Psychiatry & Neurology Psychiatry; ATTEND Psychiatry & Neurology Psychiatry
DX: F03.91 Unspecified dementia, unspecified severity, with behavioral disturbance (principal); E87.0 Hyperosmolality and hypernatremia; I10 Essential (primary) hypertension; E86.0 Dehydration; Z66 Do not resuscitate; E53.8 Deficiency of other specified B group vitamins; E78.5 Hyperlipidemia, unspecified; E21.0 Primary hyperparathyroidism; N40.0 Benign prostatic hyperplasia without lower urinary tract symptoms
CPT/HCPCS: 36415; 80048; 80053; 80061; 80069; 82306; 82607; 82746; 83036; 83970; 84100; 84443; 85025; 86592